=== PATIENT | male | born 1960 | race American Indian/Alaskan Native ===

== ENCOUNTER 2016-08-02 13:40 | Emergency (ER) | payer SELFPAY ==
[2016-08-02 14:38] VITALS: BP 126/85
[2016-08-02 17:01] LABS: Bilirubin,Urine NEG (Negative); Blood,Urine NEG (Negative); Ketones,Urine NEG (Negative); Leukocyte Esterase,Urine NEG (Negative); Nitrite,Urine NEG (Negative); Protein,Urine <15 mg/dL mg/dL (Negative); Urobilinogen,Urine < 2.0 mg/dL (<2.0)
--- NOTE | 2016-08-02 18:39 | Emergency Department Report ---
ED Male HPI - General Chief complaint: Urogenital-Male Stated complaint: DIFF TO URINATE Time Seen by Provider: 08/02/16 18:13 Source: patient Mode of arrival: Ambulatory Limitations: No Limitations - History of Present Illness Initial comments: patient comes in today with complaints of bilateral suprapubic pain. States that he was doing some lifting at work a couple months ago and injured his right wrist and groin. Came in today due to the continued pain. Patient states that he has appointment with orthopedic for his wrist next week. Further notes that he has continued to work 8 hour days, 5 days a week since injury. MD Complaint: groin pain -: Sudden, month(s) (1.5) Location: right inguinal region, left inguinal region Severity: moderate Quality: aching Consistency: intermittent (worse when coughing and voiding) Improves with: rest Worsens with: urination, movement denies: discharge, swelling, mass, rash, urinary retention, blood in urine, dysuria, fever, incontinence - Related Data Previous Rx's Medication Instructions Recorded Last Taken Type Albuterol Sulfate [Ventolin HFA] 2 puff IH Q4H PRN #1 hfa.aer.ad 05/21/15 Unknown Rx Amoxicillin/K Clav Tab [Augmentin 1 tab PO Q12HR #20 tab 05/21/15 Unknown Rx 875MG TAB] predniSONE [Deltasone] 50 mg PO QDAY #5 tab 05/21/15 Unknown Rx Cyclobenzaprine [Flexeril] 10 mg PO BID PRN #20 tablet 08/02/16 Unknown Rx traMADol [Ultram] 50 mg PO Q4HR PRN #30 tablet 08/02/16 Unknown Rx Allergies Allergy/AdvReac Type Severity Reaction Status Date / Time No Known Allergies Allergy Verified 08/02/16 14:29 ED Review of Systems ROS: Stated complaint: DIFF TO URINATE Other details as noted in HPI Constitutional: denies: chills, fever Eyes: denies: eye pain, eye discharge, vision change ENT: denies: ear pain, throat pain Respiratory: denies: cough, shortness of breath, wheezing Cardiovascular: denies: chest pain, palpitations Endocrine: no symptoms reported Gastrointestinal: abdominal pain. denies: nausea, diarrhea Genitourinary: denies: urgency, dysuria, frequency, discharge, testicular pain, testicular mass Musculoskeletal: joint swelling, arthralgia. denies: back pain Skin: denies: rash, lesions Neurological: denies: headache, weakness, paresthesias Psychiatric: denies: anxiety, depression Hematological/Lymphatic: denies: easy bleeding, easy bruising ED Past Medical Hx - Past Medical History Previous Medical History?: No - Surgical History Additional Surgical History: Left elbow surgery at [facility]. SKIN GRAFTS RIGHT ARM - Social History Smoking Status: Current Every Day Smoker Substance Use Type: Alcohol - Medications Home Medications: Home Medications Medication Instructions Recorded Confirmed Last Taken Type Albuterol Sulfate [Ventolin HFA] 2 puff IH Q4H PRN #1 hfa.aer.ad 05/21/15 Unknown Rx Amoxicillin/K Clav Tab [Augmentin 1 tab PO Q12HR #20 tab 05/21/15 Unknown Rx 875MG TAB] predniSONE [Deltasone] 50 mg PO QDAY #5 tab 05/21/15 Unknown Rx Cyclobenzaprine [Flexeril] 10 mg PO BID PRN #20 tablet 08/02/16 Unknown Rx traMADol [Ultram] 50 mg PO Q4HR PRN #30 tablet 08/02/16 Unknown Rx ED Physical Exam - General Limitations: No Limitations General appearance: alert, in no apparent distress - Head Head exam: Present: atraumatic, normocephalic - Eye Eye exam: Present: normal appearance - Neck Neck exam: Present: normal inspection - Respiratory Respiratory exam: Present: normal lung sounds bilaterally. Absent: respiratory distress - Cardiovascular Cardiovascular Exam: Present: regular rate, normal rhythm. Absent: systolic murmur, diastolic murmur, rubs, gallop - GI/Abdominal GI/Abdominal exam: Present: soft, tenderness (tenderness to bilateral inguinal ligaments without herniation.), normal bowel sounds. Absent: distended, guarding, rebound, organomegaly, mass, bruit, pulsatile mass, hernia - Rectal Rectal exam: Present: deferred - exam: Present: normal inspection. Absent: testicular tenderness, urethral discharge, scrotal swelling - Extremities Exam Extremities exam: Present: tenderness (right wrist), joint swelling (right wrist ) - Back Exam Back exam: Present: normal inspection - Neurological Exam Neurological exam: Present: alert, oriented X3, reflexes normal - Psychiatric Psychiatric exam: Present: normal affect, normal mood - Skin Skin exam: Present: warm, dry, intact, normal color. Absent: rash ED Course Vital Signs 08/02/16 14:31 Temperature 98.3 F Pulse Rate 90 Respiratory 17 Rate Blood Pressure 126/85 O2 Sat by Pulse 96 Oximetry ED Medical Decision Making - Medical Decision Making lab results reviewed and discussed with patient. Exam of patient is more consistent with groin strain. I believe that patient's continued work activities continue to aggrivate his injury. I will excuse patient from work until he sees orthopedic next week. Future work restrictions with be per their recommendations. Patient is stable for discharge and in agreement with treatment plan. Critical care attestation.: If time is entered above; I have spent that time in minutes in the direct care of this critically ill patient, excluding procedure time. ED Disposition Clinical Impression: Inguinal strain Disposition: DISCHARGED TO HOME OR SELFCARE Is pt being admited?: No Does the pt Need Aspirin: No Condition: Good Instructions: Groin Strain (ED) Prescriptions: Cyclobenzaprine [Flexeril] 10 mg PO BID PRN #20 tablet PRN Reason: Muscle Spasm traMADol [Ultram] 50 mg PO Q4HR PRN #30 tablet PRN Reason: Pain Referrals: PRIMARY CARE, [Primary Care Provider] - 3-5 Days Forms: Work/School Release Form(ED) Time of Disposition: 18:50
== END 2016-08-02 19:02 | disposition home or self-care (01) ==
LOC: ED 13:40
DX: S39.011A Strain of muscle, fascia and tendon of abdomen, initial encounter (principal); F17.200 Nicotine dependence, unspecified, uncomplicated; X58.XXXA Exposure to other specified factors, initial encounter; Y93.89 Activity, other specified; Y99.9 Unspecified external cause status; Y92.89 Other specified places as the place of occurrence of the external cause
CPT/HCPCS: 81001; 99283

== ENCOUNTER 2018-10-27 11:11 | Emergency (ER) | payer SELFPAY ==
--- NOTE | 2018-10-27 11:40 | Event Note ---
ED Screening Note ED Screening Note: left knee pain off gout meds for 3 w no trauma or fall usual gout pain l knee red and swollen; pt limping denies pmh other than gout This initial assessment/diagnostic orders/clinical plan/treatment(s) is/are subject to change based on patients health status, clinical progression and re- assessment by fellow clinical providers in the ED. Further treatment and workup at subsequent clinical providers discretion. Patient/guardian urged not to elope from the ED as their condition may be serious if not clinically assessed and managed. Initial orders include: rx here and dc home with rx
[2018-10-27] MEDS ORDERED: DECADRON IM ONE (12:11)
[2018-10-27] MEDS ORDERED: NORCO 5/325 PO ONE (12:12)
--- NOTE | 2018-10-27 14:42 | Emergency Department Report ---
ED Lower Extremity HPI - General Chief Complaint: Extremity Problem,Nontraumatic Stated Complaint: LT KNEE PAIN Time Seen by Provider: 10/27/18 11:38 Source: patient Mode of arrival: Ambulatory Limitations: No Limitations - History of Present Illness Initial Comments: This is a 57-year-old male nontoxic, well nourished in appearance, no acute signs of distress presents to the ED with c/o of left knee pain and swelling 2 days. Staetd has been out of his gout medications. Patient stated that has history of gout. Patient denies any trauma. Patient denies any numbness, tingling, fever, chills, nausea, vomiting, chest pain, shortness of breath, headache, stiff neck. Patient denies any joint redness. Patient denies decreased range of motion. Patient stated has decreased gait due to pain. Patient denies any allergies. MD Complaint: knee injury -: days(s) (2) Injury: Knee: Left Place: home Severity: mild Severity scale (0 -10): 8 Improves With: immobilization Worsens With: palpation Associated Symptoms: swelling, ambulatory. denies: snap/pop sensation, numbness, tingling, unable to bear weight, able to partially bear weight - Related Data Previous Rx's Medication Instructions Recorded Last Taken Type Albuterol Sulfate [Ventolin HFA] 2 puff IH Q4H PRN #1 hfa.aer.ad 05/21/15 Unknown Rx Amoxicillin/K Clav Tab [Augmentin 1 tab PO Q12HR #20 tab 05/21/15 Unknown Rx 875MG TAB] predniSONE [Deltasone] 50 mg PO QDAY #5 tab 05/21/15 Unknown Rx Cyclobenzaprine [Flexeril] 10 mg PO BID PRN #20 tablet 08/02/16 Unknown Rx traMADol [Ultram] 50 mg PO Q4HR PRN #30 tablet 08/02/16 Unknown Rx Acetaminophen/Codeine [Tylenol 1 tab PO Q6H PRN #12 tab 10/27/18 Unknown Rx /Codeine # 3 tab] Prednisone [predniSONE 10 mg 10 mg PO .TAPER #1 tab.ds.pk 10/27/18 Unknown Rx (6-Day Pack, 21 Tabs)] Allergies Allergy/AdvReac Type Severity Reaction Status Date / Time No Known Allergies Allergy Verified 10/27/18 11:39 ED Review of Systems ROS: Stated complaint: LT KNEE PAIN Other details as noted in HPI Constitutional: denies: chills, fever Eyes: denies: eye pain, eye discharge, vision change ENT: denies: ear pain, throat pain Respiratory: denies: cough, shortness of breath, wheezing Cardiovascular: denies: chest pain, palpitations Endocrine: no symptoms reported Gastrointestinal: denies: abdominal pain, nausea, diarrhea Genitourinary: denies: urgency, dysuria Musculoskeletal: denies: back pain, joint swelling, arthralgia Skin: denies: rash, lesions Neurological: denies: headache, weakness, paresthesias Psychiatric: denies: anxiety, depression Hematological/Lymphatic: denies: easy bleeding, easy bruising ED Past Medical Hx - Past Medical History Previous Medical History?: Yes Additional medical history: Gout - Surgical History Past Surgical History?: Yes Additional Surgical History: Left elbow surgery at [facility]. SKIN GRAFTS RIGHT ARM - Social History Smoking Status: Current Every Day Smoker Substance Use Type: Alcohol - Medications Home Medications: Home Medications Medication Instructions Recorded Confirmed Last Taken Type Albuterol Sulfate [Ventolin HFA] 2 puff IH Q4H PRN #1 hfa.aer.ad 05/21/15 Unknown Rx Amoxicillin/K Clav Tab [Augmentin 1 tab PO Q12HR #20 tab 05/21/15 Unknown Rx 875MG TAB] predniSONE [Deltasone] 50 mg PO QDAY #5 tab 05/21/15 Unknown Rx Cyclobenzaprine [Flexeril] 10 mg PO BID PRN #20 tablet 08/02/16 Unknown Rx traMADol [Ultram] 50 mg PO Q4HR PRN #30 tablet 08/02/16 Unknown Rx Acetaminophen/Codeine [Tylenol 1 tab PO Q6H PRN #12 tab 10/27/18 Unknown Rx /Codeine # 3 tab] Prednisone [predniSONE 10 mg 10 mg PO .TAPER #1 tab.ds.pk 10/27/18 Unknown Rx (6-Day Pack, 21 Tabs)] ED Physical Exam - General Limitations: No Limitations General appearance: alert, in no apparent distress - Head Head exam: Present: atraumatic, normocephalic - Extremities Exam Extremities exam: Present: normal inspection, full ROM, tenderness, normal capillary refill. Absent: joint swelling - Expanded Lower Extremity Exam Left Hip exam: Present: normal inspection, full ROM. Absent: tenderness Upper Leg exam: Present: normal inspection, full ROM. Absent: tenderness, swelling Knee exam: Present: normal inspection, full ROM, tenderness, swelling, full knee extension. Absent: abrasion, laceration, ecchymosis, deformity, crepidus, dislocation, erythema, effusion, pain w/ pronation/supination, posterior draw sign, pain/laxity with valgus, pain/laxity with varus Lower Leg exam: Present: normal inspection, full ROM. Absent: tenderness, swelling Ankle exam: Present: normal inspection, full ROM. Absent: tenderness Foot/Toe exam: Present: normal inspection, full ROM. Absent: tenderness Neuro vascular tendon exam: Present: no vascular compromise Gait: Positive: observed and normal - Back Exam Back exam: Present: normal inspection, full ROM - Neurological Exam Neurological exam: Present: alert, oriented X3, normal gait - Psychiatric Psychiatric exam: Present: normal affect, normal mood - Skin Skin exam: Present: warm, dry, intact, normal color. Absent: rash ED Course Vital Signs 10/27/18 11:37 Temperature 97.7 F Pulse Rate 90 Respiratory 14 Rate Blood Pressure 158/99 [Right] O2 Sat by Pulse 97 Oximetry - Reevaluation(s) Reevaluation #1: 10/27/18 14:44 Patient is speaking in full sentences with no signs of distress noted. ED Lower Extremity MDM - Medical Decision Making This is a 57-year-old male that presents with left knee gout flareup. Patient is stable and was examined by me. I referred patient to an orthopedic doctor for further evaluation for possible MRI. Patient does have normal gait with no joint swelling. No ecchymosis. no joint redness. Not warm to touch. No signs of cellulites present.Patient was instructed to RICE therapy. Patient received Decadron and Spring for pain. Patient is discharged with prednisone. At time of discharge, the patient does not seem toxic or ill in appearance. No acute signs of distress noted. Patient agrees to discharge treatment plan of care. No further questions noted by the patient. Critical care attestation.: If time is entered above; I have spent that time in minutes in the direct care of this critically ill patient, excluding procedure time. ED Disposition Clinical Impression: Gout of left knee Qualifiers: Gout etiology: unspecified cause Chronicity: acute Qualified Code(s): M10.9 - Gout, unspecified Disposition: DC-01 TO HOME OR SELFCARE Is pt being admited?: No Does the pt Need Aspirin: No Condition: Stable Instructions: Acetaminophen/Codeine (By mouth), Acute Gouty Arthritis (ED) Additional Instructions: Follow-up with a orthopedic doctor in 3-5 days or if symptoms worsen and continue return to emergency room as soon as possible. Do not operate any machinery while taking Tylenol with codeine as this may cause drowsiness. Prescriptions: Prednisone [predniSONE 10 mg (6-Day Pack, 21 Tabs)] 10 mg PO .TAPER #1 tab.ds.pk Acetaminophen/Codeine [Tylenol /Codeine # 3 tab] 1 tab PO Q6H PRN #12 tab PRN Reason: Pain , Severe (7-10) Referrals: PRIMARY CARE, [Referring] - 3-5 Days [facility] [Outside] - 3-5 Days ROLLY TOWNSEND MD [Staff Physician] - 3-5 Days Forms: Work/School Release Form(ED)
[2018-10-27 15:00] VITALS: BP 154/96
== END 2018-10-27 14:58 | disposition home or self-care (01) ==
LOC: ED 11:11
DX: M10.9 Gout, unspecified (principal); F17.200 Nicotine dependence, unspecified, uncomplicated
CPT/HCPCS: 96372; 99282; J1100

== ENCOUNTER 2019-06-12 04:46 | Emergency (ER) | payer SELFPAY ==
--- NOTE | 2019-06-12 06:48 | XRay Report ---
Left elbow, 3 views INDICATION: Pain following trauma today FINDINGS: The joint spaces are intact. No fracture or dislocation. Minimal olecranon spurring is seen . There is a tendon anchor in the region of the lateral humeral condyle. No joint effusion is seen. N o acute abnormality. Signer Name: Jon Knight MD Signed: 06/12/2019 6:43 AM Workstation Name: [id number]
[2019-06-12] MEDS ORDERED: IBUPROFEN 600 MG TAB PO ONE (07:42)
--- NOTE | 2019-06-12 08:01 | Emergency Department Report ---
ED Upper Extremity Inj HPI - General Chief Complaint: Extremity Injury, Upper Stated Complaint: LEFT ELBOW INJURY/WORK RELATED Time Seen by Provider: 06/12/19 07:12 Source: patient Mode of arrival: Ambulatory Limitations: No Limitations - History of Present Illness Initial Comments: This is a 58-year-old male nontoxic, well nourished in appearance, no acute signs of distress presents to the ED with c/o of left elbow pain 2 days. Patient stated that he was heavy lifting at work and developed pain. Stated has hx of ORIF to left elbow. Patient denies any trauma. Patient denies any numbness, tingling, fever, chills, nausea, vomiting, chest pain, shortness of breath, headache, stiff neck. Patient denies any joint swelling or joint redness. Patient denies decreased range of motion. Patient denies any allergies or significant past medical history. MD Complaint: Injury to:: left, elbow -: days(s) (2) Other Extremity Injury: Elbow: Left Severity scale (0 -10): 8 Improves With: immobilization Worsens With: movement of extremity Associated Symptoms: denies other symptoms. denies: weakness, numbness, neck pain, suspects foreign body, nausea/vomiting, heard/felt popping sensat - Related Data Previous Rx's Medication Instructions Recorded Last Taken Type Albuterol Sulfate [Ventolin HFA] 2 puff IH Q4H PRN #1 hfa.aer.ad 05/21/15 Unknown Rx Amoxicillin/K Clav Tab [Augmentin 1 tab PO Q12HR #20 tab 05/21/15 Unknown Rx 875MG TAB] predniSONE [Deltasone] 50 mg PO QDAY #5 tab 05/21/15 Unknown Rx Cyclobenzaprine [Flexeril] 10 mg PO BID PRN #20 tablet 08/02/16 Unknown Rx traMADoL [Ultram] 50 mg PO Q4HR PRN #30 tablet 08/02/16 Unknown Rx Acetaminophen/Codeine [Tylenol 1 tab PO Q6H PRN #12 tab 10/27/18 Unknown Rx /Codeine # 3 tab] Prednisone [predniSONE 10 mg 10 mg PO .TAPER #1 tab.ds.pk 10/27/18 Unknown Rx (6-Day Pack, 21 Tabs)] Naproxen 500 mg PO Q12H PRN #20 tablet 06/12/19 Unknown Rx Allergies Allergy/AdvReac Type Severity Reaction Status Date / Time No Known Allergies Allergy Verified 10/27/18 11:39 ED Review of Systems ROS: Stated complaint: LEFT ELBOW INJURY/WORK RELATED Other details as noted in HPI Constitutional: denies: chills, fever Eyes: denies: eye pain, eye discharge, vision change ENT: denies: ear pain, throat pain Respiratory: denies: cough, shortness of breath, wheezing Cardiovascular: denies: chest pain, palpitations Endocrine: no symptoms reported Gastrointestinal: denies: abdominal pain, nausea, diarrhea Genitourinary: denies: urgency, dysuria Musculoskeletal: denies: back pain, joint swelling, arthralgia Skin: denies: rash, lesions Neurological: denies: headache, weakness, paresthesias Psychiatric: denies: anxiety, depression Hematological/Lymphatic: denies: easy bleeding, easy bruising ED Past Medical Hx - Past Medical History Previous Medical History?: Yes Additional medical history: Gout - Surgical History Past Surgical History?: No Additional Surgical History: Left elbow surgery at [facility]. SKIN GRAFTS RIGHT ARM - Social History Smoking Status: Heavy Tobacco Smoker Substance Use Type: None - Medications Home Medications: Home Medications Medication Instructions Recorded Confirmed Last Taken Type Albuterol Sulfate [Ventolin HFA] 2 puff IH Q4H PRN #1 hfa.aer.ad 05/21/15 Unknown Rx Amoxicillin/K Clav Tab [Augmentin 1 tab PO Q12HR #20 tab 05/21/15 Unknown Rx 875MG TAB] predniSONE [Deltasone] 50 mg PO QDAY #5 tab 05/21/15 Unknown Rx Cyclobenzaprine [Flexeril] 10 mg PO BID PRN #20 tablet 08/02/16 Unknown Rx traMADoL [Ultram] 50 mg PO Q4HR PRN #30 tablet 08/02/16 Unknown Rx Acetaminophen/Codeine [Tylenol 1 tab PO Q6H PRN #12 tab 10/27/18 Unknown Rx /Codeine # 3 tab] Prednisone [predniSONE 10 mg 10 mg PO .TAPER #1 tab.ds.pk 10/27/18 Unknown Rx (6-Day Pack, 21 Tabs)] Naproxen 500 mg PO Q12H PRN #20 tablet 06/12/19 Unknown Rx ED Physical Exam - General Limitations: No Limitations General appearance: alert, in no apparent distress - Head Head exam: Present: atraumatic, normocephalic - Neck Neck exam: Present: normal inspection, full ROM. Absent: tenderness, meningismus, lymphadenopathy - Extremities Exam Extremities exam: Present: normal inspection, full ROM, tenderness, normal capillary refill. Absent: joint swelling - Expanded Upper Extremity Exam Left General: Present: normal inspection Shoulder Exam: Present: normal inspection, full ROM. Absent: tenderness, swelling Upper Arm exam: Present: normal inspection, full ROM. Absent: tenderness, swelling Elbow exam: Present: normal inspection, full ROM, tenderness. Absent: swelling, abrasion, laceration, ecchymosis, deformity, crepidus, dislocation, erythema, effusion, pain w/ pronation/supination, tenderness over radial head Forearm Wrist exam: Present: normal inspection, full ROM. Absent: tenderness, swelling Hand Wrist exam: Present: normal inspection, full ROM. Absent: tenderness, swelling Vascular: Present: vascular compromise, normal capillary refill - Back Exam Back exam: Present: normal inspection, full ROM - Neurological Exam Neurological exam: Present: alert, oriented X3, normal gait - Psychiatric Psychiatric exam: Present: normal affect, normal mood - Skin Skin exam: Present: warm, dry, intact, normal color. Absent: rash ED Course Vital Signs 06/12/19 04:49 Temperature 97.6 F Pulse Rate 78 Respiratory 18 Rate Blood Pressure 159/89 O2 Sat by Pulse 98 Oximetry - Reevaluation(s) Reevaluation #1: 06/12/19 08:00 Patient is speaking in full sentences with no signs of distress noted. ED Medical Decision Making - Medical Decision Making This is a 58-year-old male that presents with right elbow strain. Patient is stable and was examined by me. I referred patient to an orthopedic doctor for further evaluation for possible MRI. X-ray has been obtained and dictated by the radiologist. Patient is notified of the x-ray report with noted by the patient. Patient does have normal gait with no tenderness and no joint swelling. No ecchymosis. no joint redness or swelling. Not warm to touch. No signs of cellulites present. Patient was instructed to RICE therapy. Patient received Motrin for pain. Patient is discharged with Motrin. At time of discharge, the patient does not seem toxic or ill in appearance. No acute signs of distress noted. Patient agrees to discharge treatment plan of care. No further questions noted by the patient. Critical care attestation.: If time is entered above; I have spent that time in minutes in the direct care of this critically ill patient, excluding procedure time. ED Disposition Clinical Impression: Strain of right elbow Qualifiers: Encounter type: initial encounter Qualified Code(s): S46.911A - Strain of unspecified muscle, fascia and tendon at shoulder and upper arm level, right arm, initial encounter Disposition: TO HOME OR SELFCARE Is pt being admited?: No Does the pt Need Aspirin: No Condition: Stable Instructions: RICE Therapy (ED) Additional Instructions: Follow-up with a orthopedic doctor in 3-5 days or if symptoms worsen and johanna nue return to emergency room as soon as possible. Prescriptions: Naproxen 500 mg PO Q12H PRN #20 tablet PRN Reason: Pain , Severe (7-10) Referrals: PRIMARY CAREMD [Primary Care Provider] - 3-5 Days ROLLY TOWNSEND MD [Staff Physician] - 3-5 Days [facility] [Outside] - 3-5 Days Forms: Work/School Release Form(ED)
[2019-06-12 08:18] VITALS: BP 154/84
== END 2019-06-12 08:17 | disposition home or self-care (01) ==
LOC: ED 04:46
DX: S59.902A Unspecified injury of left elbow, initial encounter (principal); S53.401A Unspecified sprain of right elbow, initial encounter; M10.9 Gout, unspecified; F17.200 Nicotine dependence, unspecified, uncomplicated; Z79.899 Other long term (current) drug therapy; Z96.622 Presence of left artificial elbow joint; Z98.890 Other specified postprocedural states; X50.0XXA Overexertion from strenuous movement or load, initial encounter; Y93.89 Activity, other specified; Y92.89 Other specified places as the place of occurrence of the external cause; Y99.0 Civilian activity done for income or pay

== ENCOUNTER 2019-07-06 12:56 | Emergency (ER) | payer SELFPAY ==
--- NOTE | 2019-07-06 14:15 | Emergency Department Report ---
Blank Doc - Documentation Documentation: 58-year-old male that presents with SOB and cough. This initial assessment/diagnostic orders/clinical plan/treatment(s) is/are subject to change based on patient's health status, clinical progression and re- assessment by fellow clinical providers in the ED. Further treatment and workup at subsequent clinical providers discretion. Patient/guardians urged not to elope from the ED as their condition may be serious if not clinically assessed and managed. Initial orders include: 1- Patient sent to [facility] for further evaluation and treatment 2- CXR
[2019-07-06 14:17] VITALS: BP 112/79
--- NOTE | 2019-07-06 14:43 | XRay Report ---
CHEST 2 VIEWS INDICATION / CLINICAL INFORMATION: cough. COMPARISON: 2 views of the chest from 05/20/2015. FINDINGS: SUPPORT DEVICES: None. HEART / MEDIASTINUM: No significant abnormality. LUNGS / PLEURA: No significant pulmonary or pleural abnormality. No pneumothorax. ADDITIONAL FINDINGS: No significant additional findings. IMPRESSION: 1. No acute abnormality of the chest. Signer Name: Uriel Silva MD Signed: 07/06/2019 2:39 PM Workstation Name: [id number]
[2019-07-06] MEDS ORDERED: LEVALBUTEROL 0.63 MG/3 ML NEBU IH ONE (18:10)
[2019-07-06] MEDS ORDERED: dexAMETHasone 4 MG/ML VIAL IM STA (18:14)
--- NOTE | 2019-07-06 18:16 | Emergency Department Report ---
Minor Respiratory - HPI Chief Complaint: Upper Respiratory Infection Stated Complaint: COUGH, SOB Time Seen by Provider: 07/06/19 14:14 Duration: 1 Day Minor Respiratory: Yes Rhinorrhea, Yes Able to Tolerate Fluids, Yes Cough (Mild), Yes Shortness of Breath (With cough), No Sore Throat, No Ear Pain, No Sick Contacts, No Hemoptysis, No Fever Other History: This is a 58-year-old male here report that he has been having occasional cough and shortness of breath with exertion since yesterday. Denies any chest pain. Denies any contact with individuals that had similar problem or any recent travel outside the [place]. Denies any recent travel by airplane. Denies any nausea vomiting, sore throat. Nasal congestion and runny nose positive. Denies any abdominal pain. Denies any diarrhea. Pain is 0/10. No medication taken prior to coming to the ER ED Review of Systems ROS: Stated complaint: COUGH, SOB Other details as noted in HPI Constitutional: denies: chills, fever Eyes: denies: eye discharge ENT: congestion. denies: ear pain, throat pain Respiratory: cough, shortness of breath, SOB with exertion, wheezing. denies: SOB at rest Cardiovascular: denies: chest pain, palpitations, edema, syncope Gastrointestinal: denies: abdominal pain, nausea, vomiting Musculoskeletal: denies: back pain, arthralgia, myalgia Skin: denies: rash Neurological: denies: headache, vertigo ED Past Medical Hx - Past Medical History Previous Medical History?: Yes Additional medical history: Gout - Surgical History Past Surgical History?: Yes Additional Surgical History: Left elbow surgery at [facility]. SKIN GRAFTS RIGHT ARM - Family History Family history: hypertension - Social History Smoking Status: Current Every Day Smoker Substance Use Type: None - Medications Home Medications: Home Medications Medication Instructions Recorded Confirmed Last Taken Type Albuterol Sulfate [Ventolin HFA] 2 puff IH Q4H PRN #1 hfa.aer.ad 05/21/15 Unknown Rx Amoxicillin/K Clav Tab [Augmentin 1 tab PO Q12HR #20 tab 05/21/15 Unknown Rx 875MG TAB] predniSONE [Deltasone] 50 mg PO QDAY #5 tab 05/21/15 Unknown Rx Cyclobenzaprine [Flexeril] 10 mg PO BID PRN #20 tablet 08/02/16 Unknown Rx traMADoL [Ultram] 50 mg PO Q4HR PRN #30 tablet 08/02/16 Unknown Rx Acetaminophen/Codeine [Tylenol 1 tab PO Q6H PRN #12 tab 10/27/18 Unknown Rx /Codeine # 3 tab] Prednisone [predniSONE 10 mg 10 mg PO .TAPER #1 tab.ds.pk 10/27/18 Unknown Rx (6-Day Pack, 21 Tabs)] Naproxen 500 mg PO Q12H PRN #20 tablet 06/12/19 Unknown Rx Albuterol INH(or & Nicu Only) 2 puff IH Q6H PRN #1 inhalation 07/06/19 Unknown Rx [ProAir HFA Inhaler] methylPREDNISolone [Medrol 4MG 4 mg PO QAM 6 Days #1 tab.ds.pk 07/06/19 Unknown Rx DOSEPAK (21 tabs)] Minor Respiratory Exam - Exam General: Vital signs noted. No distress. Alert and acting appropriately. This is a 58-year-old male well-nourished well-developed in no acute distress HEENT: Yes Moist Mucous Membranes, Yes Rhinorrhea (Pale and boggy clear drainage), No Pharyngeal Erythema, No Pharyngeal Exudates, No Conjuctival Injection, No Frontal Tenderness, No Maxillary Tenderness Ear: Neither TM Bulge, Neither TM Erythema, Neither EAC Pain, Neither EAC Discharge Neck: Yes Supple, No Adenopathy Lungs: Yes Good Air Exchange, Yes Wheezes (Scattered wheezing to upper lung obrien), No Ronchi, No Stridor, No Cough, No Labored Respirations, No Retractions, No Use of Accessory Muscles, No Other Abnormal Lung Sounds Heart: Yes Regular, No Murmur Abdomen: Yes Normal Bowel Sounds (In all quadrants), No Tenderness, No Peritoneal Signs Skin: No Rash, No Edema Neurologic: Alert and oriented, no deficits. Musculoskeletal: Unremarkable. ED Course Vital Signs 07/06/19 14:15 Temperature 97.9 F Pulse Rate 92 H Respiratory 16 Rate Blood Pressure 112/79 O2 Sat by Pulse 96 Oximetry Vital Signs 07/06/19 07/06/19 07/06/19 14:15 18:43 18:54 Temperature 97.9 F Pulse Rate 92 H 62 Pulse Rate [ 93 H Anterior Bilateral Throughout] Respiratory 16 Rate Respiratory 17 Rate [Anterior Bilateral Throughout] Blood Pressure 112/79 O2 Sat by Pulse 96 99 Oximetry - Reevaluation(s) Reevaluation #1: 07/06/19 18:52 Patient received nebulizer treatments Xopenex 1.25 mg and Decadron 10 mg IM. He is feeling much better after treatment. Pulse ox went from 96% on room air to 9 9% on room air. He said he is feeling much better. Lung sounds are clear ED Medical Decision Making - Radiology Data Radiology results: report reviewed X-ray 2 views dictated by radiologist and report reviewed myself. No acute processes. Print Report Referring Physician:PEGGY MASONPatient Name:GRACIE NGPatient ID: [id number] of :[id number]:MaleAccession:[id number] Date:[id number] Status:Finalized Findings [facility] [address] [place] [address] XRay Report Signed Patient: GRACIE NG MR#: [id number] : 1960 Acct:[id number] Age/Sex: 58 / M ADM Date: 07/06/19 Loc: ED Attending Dr: Ordering Physician: PEGGY MASON NP Date of Service: 07/06/19 Procedure(s): XR chest routine 2V Accession Number(s): [id number] cc: PEGGY MASON NP Fluoro Time In Minutes: CHEST 2 VIEWS INDICATION / CLINICAL INFORMATION: cough. COMPARISON: 2 views of the chest from 05/20/2015. FINDINGS: SUPPORT DEVICES: None. HEART / MEDIASTINUM: No significant abnormality. LUNGS / PLEURA: No significant pulmonary or pleural abnormality. No pneumothorax. ADDITIONAL FINDINGS: No significant additional findings. IMPRESSION: 1. No acute abnormality of the chest. Signer Name: Uriel Silva MD Signed: 07/06/2019 2:39 PM Workstation Name: [id number] Transcribed By: [place] Dictated By: Uriel Silva MD Electronically Authenticated By: Uriel Silva MD Signed Date/Time: 07/06/191438 DD/ 38 TD/TT: - Medical Decision Making This is a 58-year-old male here report that he has some cough and shortness of breath on exertion started yesterday. He said he was sent to the emergency room by his boss to make sure he was okay. Patient is a smoker and smokes daily. Past medical history of gout otherwise stable. Physical exam stable except he has scattered wheezing to his upper lung obrien and signs of allergic rhinitis. Patient with mild acute bronchitis and URI with cough and congestion. Treated in emergency room with nebulizer treatment and lung sounds are clear after treatment. He was given Decadron 10 mg IM in emergency room. Patient stable in no acute distress. Vital signs stable afebrile and he is in no pain. Patient discharged home with prescription for Medrol Dosepak, Zyrtec and albuterol inhaler. - Differential Diagnosis PNA, bronchitis, sinusitis, URI with cough and congestion Critical care attestation.: If time is entered above; I have spent that time in minutes in the direct care of this critically ill patient, excluding procedure time. ED Disposition Clinical Impression: URI with cough and congestion Acute bronchitis Qualifiers: Bronchitis organism: unspecified organism Qualified Code(s): J20.9 - Acute bronchitis, unspecified Disposition: DC-01 TO HOME OR SELFCARE Is pt being admited?: No Does the pt Need Aspirin: No Condition: Stable Instructions: Upper Respiratory Infection (ED), Acute Bronchitis (ED) Additional Instructions: Please see discharge instruction COVID-19 for your information Follow-up with your primary care physician in 2 days Take medication as prescribed If your condition worsens, return to the emergency room Prescriptions: methylPREDNISolone [Medrol 4MG DOSEPAK (21 tabs)] 4 mg PO QAM 6 Days #1 tab.ds.pk Albuterol INH(or & Nicu Only) [ProAir HFA Inhaler] 2 puff IH Q6H PRN #1 inhalation PRN Reason: Shortness Of Breath/cough Referrals: PRIMARY CARE, [Primary Care Provider] - 07/08/19 Follow-up, [facility] primary care [Other] - 07/08/19 Forms: Work/School Release Form(ED)
== END 2019-07-06 19:00 | disposition home or self-care (01) ==
LOC: ED 12:56
DX: J20.9 Acute bronchitis, unspecified (principal); F17.200 Nicotine dependence, unspecified, uncomplicated; M10.9 Gout, unspecified
CPT/HCPCS: 71046; 94640; 96372; 99283; J1100; 94644

== ENCOUNTER 2019-10-09 06:15 | Emergency (ER) | payer SELFPAY ==
[2019-10-09 06:37] VITALS: BP 150/79
[2019-10-09] MEDS ORDERED: COLCHICINE 0.6 MG CAP PO ONE (07:35)
[2019-10-09] MEDS ORDERED: dexAMETHasone 20 MG/5 ML VIAL IM ONE (07:35)
--- NOTE | 2019-10-09 08:32 | Emergency Department Report ---
Upper Extremity - HPI Chief Complaint: Extremity Injury, Upper Stated Complaint: GOUT/RT ELBOW Time Seen by Provider: 10/09/19 07:34 Upper Extremity: Right Elbow (pain) Occurred When: 4 Days Mechanism: Other Severity: moderate Symptoms: Yes Pain with Movement, Yes Limited Range of Movement (Due to pain), No Deformity, No Numbness, No Weakness, No Swelling, No Bruising/Ecchymosis, No Laceration or Abrasion Other History: This is a 58-year-old male with a history of gout who presents the ED complaining of right elbow pain from a gouty flareup. Patient states he was celebrating his niece's graduation a couple days ago he got carried away with different foods. Patient states that he does not currently take any med ication for gout which is why he got a flare. He denies any injury or trauma or falls ED Review of Systems ROS: Stated complaint: GOUT/RT ELBOW Other details as noted in HPI Comment: All other systems reviewed and negative ED Past Medical Hx - Past Medical History Previous Medical History?: Yes Additional medical history: Gout - Surgical History Past Surgical History?: Yes Additional Surgical History: Left elbow surgery at [facility]. SKIN GRAFTS RIGHT ARM - Social History Smoking Status: Current Every Day Smoker Substance Use Type: Alcohol - Medications Home Medications: Home Medications Medication Instructions Recorded Confirmed Last Taken Type Albuterol Sulfate [Ventolin HFA] 2 puff IH Q4H PRN #1 hfa.aer.ad 05/21/15 Unknown Rx Amoxicillin/K Clav Tab [Augmentin 1 tab PO Q12HR #20 tab 05/21/15 Unknown Rx 875MG TAB] Cyclobenzaprine [Flexeril] 10 mg PO BID PRN #20 tablet 08/02/16 Unknown Rx traMADoL [Ultram] 50 mg PO Q4HR PRN #30 tablet 08/02/16 Unknown Rx Acetaminophen/Codeine [Tylenol 1 tab PO Q6H PRN #12 tab 10/27/18 Unknown Rx /Codeine # 3 tab] Prednisone [predniSONE 10 mg 10 mg PO .TAPER #1 tab.ds.pk 10/27/18 Unknown Rx (6-Day Pack, 21 Tabs)] Albuterol INH(or & Nicu Only) 2 puff IH Q6H PRN #1 inhalation 07/06/19 Unknown Rx [ProAir HFA Inhaler] methylPREDNISolone [Medrol 4MG 4 mg PO QAM 6 Days #1 tab.ds.pk 07/06/19 Unknown Rx DOSEPAK (21 tabs)] Colchicine 0.6 mg PO BID #20 capsule 10/09/19 Unknown Rx Naproxen 500 mg PO Q12H PRN #20 tablet 10/09/19 Unknown Rx predniSONE [Deltasone] 50 mg PO QDAY #5 tab 10/09/19 Unknown Rx Upper Extremity Exam - Exam General: Vital signs noted. No distress. Alert and acting appropriately. Head and Torso: No HEENT Abnormality, No Neck Tenderness, No Chest/Lungs Abnormality, No Abdominal Tenderness, No Back Tenderness Shoulder Exam: Yes Normal Range of Motion in Shoulder, No Shoulder Tenderness, No Clavicle Tenderness, No Shoulder Deformity, No AC Joint Tenderness Arm Exam: No Arm/Humerus Tenderness, No Arm Deformity Elbow: Yes Elbow Tenderness (To palpation of the right elbow. Pain with extension), No Normal Range of Motion in Elbow, No Elbow Deformity Forearm: No Forearm Tenderness, No Forearm Deformity, No Pain with Pronation, No Pain with Supination Wrist: Yes Normal ROM in Wrist, No Wrist Tenderness, No Wrist Deformity, No Snuffbox Tenderness, No Pain with Axial Thumb Compression Hand: Yes Normal ROM in Digit(s), No Hand Tenderness, No Hand Deformity, No Digit Tenderness, No Digit(s) Deformity, No Tendon Dysfunction CMS Exam: No Broken Skin, No Normal Distal Pulses, No Normal Capillary Refill, No Normal Distal Sensation ED Course Vital Signs 10/09/19 06:25 Temperature 98.1 F Pulse Rate 88 Respiratory 18 Rate Blood Pressure 150/79 O2 Sat by Pulse 95 Oximetry ED Medical Decision Making - Medical Decision Making 58-year-old male presents with right elbow pain secondary to gouty arthritis. Patient received colchicine Decadron in the ED. Discussed patient to follow-up with his primary care physician. Patient will be discharged home on meds for gouty arthritis. Vital signs are normal patient is in no acute distress. Critical care attestation.: If time is entered above; I have spent that time in minutes in the direct care of this critically ill patient, excluding procedure time. ED Disposition Clinical Impression: Gouty arthritis Disposition: TO HOME OR SELFCARE Is pt being admited?: No Does the pt Need Aspirin: No Condition: Stable Instructions: Acute Gouty Arthritis (ED) Additional Instructions: Make sure to follow up with the primary care physician as discussed. Take all your medications as you've been prescribed. If you have any worsening symptoms or develop new symptoms please return to ED immediately. Prescriptions: Colchicine 0.6 mg PO BID #20 capsule predniSONE [Deltasone] 50 mg PO QDAY #5 tab Naproxen 500 mg PO Q12H PRN #20 tablet PRN Reason: Pain , Severe (7-10) Referrals: PRIMARY CARE, [Primary Care Provider] - 3-5 Days [facility] [Outside] - 3-5 Days [facility] [Outside] - 3-5 Days Forms: Work/School Release Form(ED) Time of Disposition: 08:37
== END 2019-10-09 08:41 | disposition home or self-care (01) ==
LOC: ED 06:15
DX: M10.9 Gout, unspecified (principal); F17.200 Nicotine dependence, unspecified, uncomplicated; Z79.899 Other long term (current) drug therapy; Z98.890 Other specified postprocedural states
CPT/HCPCS: 96372; 99282; J1100

== ENCOUNTER 2020-02-18 06:20 | Emergency (ER) | payer SELFPAY ==
[2020-02-18 07:00] VITALS: BP 149/102
--- NOTE | 2020-02-18 07:18 | XRay Report ---
RIGHT WRIST 3 VIEWS INDICATION / CLINICAL INFORMATION: right wrist pain. COMPARISON: None available. FINDINGS: Very minimal degenerative changes present within the wrist. No fracture or dislocation. IMPRESSION: Minimal degenerative change. Signer Name: Brandie Tobar MD Signed: 02/18/2020 7:13 AM Workstation Name: [id number]
--- NOTE | 2020-02-18 10:07 | Emergency Department Report ---
Upper Extremity - HPI Chief Complaint: Extremity Injury, Upper Stated Complaint: RIGHT WRIST PAIN Time Seen by Provider: 02/18/20 10:02 Upper Extremity: Right Wrist Occurred When: 1 Day Severity: severe Symptoms: Yes Pain with Movement, No Deformity, No Limited Range of Movement, No Numbness, No Swelling Other History: The patient was evaluated in the emergency department for symptoms described in the history of present illness. He/she was evaluated in the context of the global COVID-19 pandemic, which necessitated consideration that the patient might be at risk for infection with the virus that causes COVID-19. Institutional protocols and algorithms that pertain to the evaluation of patients at risk for COVID-19 are in a state of rapid change based on information released by regulatory bodies including the CDC and federal and state organizations. These policies and algorithms were followed during the patient's care in the emergency department. Please note that these policies, procedures and recommendations changed on a rapid basis. 59-year-old - Serbian male presents to the emergency room for right wrist pain with no injury. Patient states that started last night. Patient states he took some medication not sure the name of it. Patient states that it did not help. Patient does have a history of gout. He admits to eating shrimp. ED Review of Systems ROS: Stated complaint: RIGHT WRIST PAIN Other details as noted in HPI Comment: All other systems reviewed and negative ED Past Medical Hx - Past Medical History Previous Medical History?: Yes Additional medical history: Gout - Surgical History Additional Surgical History: Left elbow surgery at [facility]. SKIN GRAFTS RIGHT ARM - Social History Smoking Status: Current Every Day Smoker Substance Use Type: None - Medications Home Medications: Home Medications Medication Instructions Recorded Confirmed Last Taken Type Albuterol Sulfate [Ventolin HFA] 2 puff IH Q4H PRN #1 hfa.aer.ad 05/21/15 Unknown Rx Amoxicillin/K Clav Tab [Augmentin 1 tab PO Q12HR #20 tab 05/21/15 Unknown Rx 875MG TAB] Cyclobenzaprine [Flexeril] 10 mg PO BID PRN #20 tablet 08/02/16 Unknown Rx traMADoL [Ultram] 50 mg PO Q4HR PRN #30 tablet 08/02/16 Unknown Rx Acetaminophen/Codeine [Tylenol 1 tab PO Q6H PRN #12 tab 10/27/18 Unknown Rx /Codeine # 3 tab] Prednisone [predniSONE 10 mg 10 mg PO .TAPER #1 tab.ds.pk 10/27/18 Unknown Rx (6-Day Pack, 21 Tabs)] Albuterol Mdi (or & Nicu Only) 2 puff IH Q6H PRN #1 inhalation 07/06/19 Unknown Rx [ProAir HFA Inhaler] methylPREDNISolone [Medrol 4MG 4 mg PO QAM 6 Days #1 tab.ds.pk 07/06/19 Unknown Rx DOSEPAK (21 tabs)] Colchicine 0.6 mg PO BID #20 capsule 10/09/19 Unknown Rx Naproxen 500 mg PO Q12H PRN #20 tablet 10/09/19 Unknown Rx predniSONE [Deltasone] 50 mg PO QDAY #5 tab 10/09/19 Unknown Rx Colchicine 0.6 mg PO BID #20 capsule 02/18/20 Unknown Rx Indomethacin 50 mg PO Q8H #15 capsule 02/18/20 Unknown Rx predniSONE [Deltasone] 50 mg PO QDAY #5 tab 02/18/20 Unknown Rx Upper Extremity Exam - Exam General: Vital signs noted. No distress. Alert and acting appropriately. ED Course Vital Signs 02/18/20 06:59 Temperature 98 F Pulse Rate 95 H Respiratory 18 Rate Blood Pressure 149/102 [Left] O2 Sat by Pulse 98 Oximetry ED Medical Decision Making - Radiology Data Radiology results: report reviewed [address] [address] XRay Report Signed Patient: GRACIE NG MR#: [id number] : 1960 Acct:[id number] Age/Sex: 59 / M ADM Date: 02/18/20 Loc: ED Attending Dr: Ordering Physician: TANYA CHEN MD Date of Service: 02/18/20 Procedure(s): XR wrist 3+V RT Accession Number(s): [id number] cc: ED MD APRIL Fluoro Time In Minutes: RIGHT WRIST 3 VIEWS INDICATION / CLINICAL INFORMATION: right wrist pain. COMPARISON: None available. FINDINGS: Very minimal degenerative changes present within the wrist. No fracture or dislocation. IMPRESSION: Minimal degenerative change. Signer Name: Brandie Tobar MD Signed: 02/18/2020 7:13 AM Workstation Name: [id number] Transcribed By: Dictated By: Brandie Tobar MD Electronically Authenticated By: Brandie Tobar MD Signed Date/Time: 02/18/20712 DD/ 1 TD/TT: - Medical Decision Making 59-year-old -Serbian male presents to the emergency room for right wrist pain with no injury. Patient states that started last night. Patient states he took some medication not sure the name of it. Patient states that it did not help. Patient does have a history of gout. He admits to eating shrimp. Patient be given a dexamethasone 10 mg IM shot, colchicine 1.2 mg pill and Toradol injection of 30 mg. Patient be discharged home on a prednisone trial colchicine and ibuprofen. Critical care attestation.: If time is entered above; I have spent that time in minutes in the direct care o f this critically ill patient, excluding procedure time. ED Disposition Clinical Impression: Gouty arthritis Disposition: DC-01 TO HOME OR SELFCARE Is pt being admited?: No Does the pt Need Aspirin: No Condition: Stable Instructions: Wrist Pain, Adult, Low-Purine Eating Plan Additional Instructions: Take medications as prescribed. Avoid drinking alcohol eating seafood and red meats. Increase your water intake by 4 L daily. Prescriptions: Colchicine 0.6 mg PO BID #20 capsule predniSONE [Deltasone] 50 mg PO QDAY #5 tab Indomethacin 50 mg PO Q8H #15 capsule Referrals: PRIMARY CAREMD [Primary Care Provider] - 3-5 Days [facility] [Provider Group] - 3-5 Days
[2020-02-18] MEDS ORDERED: dexAMETHasone 20 MG/5 ML VIAL IV ONE (10:09)
[2020-02-18] MEDS ORDERED: KETOROLAC 30 MG/1 ML INJ IM ONE (10:09)
[2020-02-18] MEDS ORDERED: COLCHICINE 0.6 MG CAP PO ONE (10:09)
== END 2020-02-18 11:11 | disposition home or self-care (01) ==
LOC: ED 06:20
DX: M10.9 Gout, unspecified (principal); F17.200 Nicotine dependence, unspecified, uncomplicated; Z79.899 Other long term (current) drug therapy; Z98.890 Other specified postprocedural states
CPT/HCPCS: 73110; 96372; 96374; 99284; J1100; J1885

== ENCOUNTER 2020-06-03 04:36 | Emergency (ER) | payer SELFPAY ==
[2020-06-03 05:14] VITALS: BP 144/95
--- NOTE | 2020-06-03 05:16 | Emergency Department Report ---
ED Upper Extremity Inj HPI - General Stated Complaint: GOUT PAIN/ELBOW Time Seen by Provider: 06/03/20 05:07 - History of Present Illness Initial Comments: 39-year-old Indonesian male with a known history of gout arthritis presents emerged department complaining of a possible flareup after consuming excess amount of seafood and drinking alcohol wearing off of his gout diet as previously instructed by emergency department states she been having this prob edel off and on for cysts for several years it is yet to follow-up with the appropriate doctor for gout management. Reports no fever, chills, sweats, chest pain, palpitation, nausea, vomiting, traumatic event to cause pain MD Complaint: Injury to:: right, elbow -: Gradual Other Extremity Injury: Elbow: Right Other Injuries: none Handedness: right Associated Symptoms: denies other symptoms - Related Data Previous Rx's Medication Instructions Recorded Last Taken Type Albuterol Sulfate [Ventolin HFA] 2 puff IH Q4H PRN #1 hfa.aer.ad 05/21/15 Unknown Rx Amoxicillin/K Clav Tab [Augmentin 1 tab PO Q12HR #20 tab 05/21/15 Unknown Rx 875MG TAB] Cyclobenzaprine [Flexeril] 10 mg PO BID PRN #20 tablet 08/02/16 Unknown Rx traMADoL [Ultram] 50 mg PO Q4HR PRN #30 tablet 08/02/16 Unknown Rx Acetaminophen/Codeine [Tylenol 1 tab PO Q6H PRN #12 tab 10/27/18 Unknown Rx /Codeine # 3 tab] Prednisone [predniSONE 10 mg 10 mg PO .TAPER #1 tab.ds.pk 10/27/18 Unknown Rx (6-Day Pack, 21 Tabs)] Albuterol Mdi (or & Nicu Only) 2 puff IH Q6H PRN #1 inhalation 07/06/19 Unknown Rx [ProAir HFA Inhaler] methylPREDNISolone [Medrol 4MG 4 mg PO QAM 6 Days #1 tab.ds.pk 07/06/19 Unknown Rx DOSEPAK (21 tabs)] Colchicine 0.6 mg PO BID #20 capsule 10/09/19 Unknown Rx Naproxen 500 mg PO Q12H PRN #20 tablet 10/09/19 Unknown Rx predniSONE [Deltasone] 50 mg PO QDAY #5 tab 10/09/19 Unknown Rx Colchicine 0.6 mg PO BID #20 capsule 02/18/20 Unknown Rx Indomethacin 50 mg PO Q8H #15 capsule 02/18/20 Unknown Rx predniSONE [Deltasone] 50 mg PO QDAY #5 tab 02/18/20 Unknown Rx Colchicine 0.6 mg PO Q2HR #20 tablet 06/03/20 Unknown Rx Indomethacin [Indocin] 25 mg PO Q8H #14 capsule 06/03/20 Unknown Rx predniSONE [Deltasone] 50 mg PO QDAY #5 tab 06/03/20 Unknown Rx Allergies Allergy/AdvReac Type Severity Reaction Status Date / Time No Known Allergies Allergy Verified 10/27/18 11:39 ED Review of Systems ROS: Stated complaint: GOUT PAIN/ELBOW Other details as noted in HPI Comment: All other systems reviewed and negative ED Past Medical Hx - Past Medical History Additional medical history: Gout - Surgical History Additional Surgical History: Left elbow surgery at [facility]. SKIN GRAFTS RIGHT ARM - Social History Smoking Status: Current Every Day Smoker Substance Use Type: None - Medications Home Medications: Home Medications Medication Instructions Recorded Confirmed Last Taken Type Albuterol Sulfate [Ventolin HFA] 2 puff IH Q4H PRN #1 hfa.aer.ad 05/21/15 Unknown Rx Amoxicillin/K Clav Tab [Augmentin 1 tab PO Q12HR #20 tab 05/21/15 Unknown Rx 875MG TAB] Cyclobenzaprine [Flexeril] 10 mg PO BID PRN #20 tablet 08/02/16 Unknown Rx traMADoL [Ultram] 50 mg PO Q4HR PRN #30 tablet 08/02/16 Unknown Rx Acetaminophen/Codeine [Tylenol 1 tab PO Q6H PRN #12 tab 10/27/18 Unknown Rx /Codeine # 3 tab] Prednisone [predniSONE 10 mg 10 mg PO .TAPER #1 tab.ds.pk 10/27/18 Unknown Rx (6-Day Pack, 21 Tabs)] Albuterol Mdi (or & Nicu Only) 2 puff IH Q6H PRN #1 inhalation 07/06/19 Unknown Rx [ProAir HFA Inhaler] methylPREDNISolone [Medrol 4MG 4 mg PO QAM 6 Days #1 tab.ds.pk 07/06/19 Unknown Rx DOSEPAK (21 tabs)] Colchicine 0.6 mg PO BID #20 capsule 10/09/19 Unknown Rx Naproxen 500 mg PO Q12H PRN #20 tablet 10/09/19 Unknown Rx predniSONE [Deltasone] 50 mg PO QDAY #5 tab 10/09/19 Unknown Rx Colchicine 0.6 mg PO BID #20 capsule 02/18/20 Unknown Rx Indomethacin 50 mg PO Q8H #15 capsule 02/18/20 Unknown Rx predniSONE [Deltasone] 50 mg PO QDAY #5 tab 02/18/20 Unknown Rx Colchicine 0.6 mg PO Q2HR #20 tablet 06/03/20 Unknown Rx Indomethacin [Indocin] 25 mg PO Q8H #14 capsule 06/03/20 Unknown Rx predniSONE [Deltasone] 50 mg PO QDAY #5 tab 06/03/20 Unknown Rx ED Physical Exam - General General appearance: alert, in no apparent distress - Head Head exam: Present: atraumatic, normocephalic - Eye Eye exam: Present: normal appearance - ENT ENT exam: Present: mucous membranes moist - Neck Neck exam: Present: normal inspection - Respiratory Respiratory exam: Present: normal lung sounds bilaterally. Absent: respiratory distress - Cardiovascular Cardiovascular Exam: Present: regular rate, normal rhythm. Absent: systolic murmur, diastolic murmur, rubs, gallop - GI/Abdominal GI/Abdominal exam: Present: soft, normal bowel sounds - Rectal Rectal exam: Present: deferred - Extremities Exam Extremities exam: Present: normal inspection, tenderness, joint swelling, other (Right elbow) - Back Exam Back exam: Present: normal inspection. Absent: CVA tenderness (R), CVA tenderness (L) - Neurological Exam Neurological exam: Present: alert, oriented X3, CN II-XII intact, normal gait - Psychiatric Psychiatric exam: Present: normal affect, normal mood - Skin Skin exam: Present: warm, dry, intact, normal color. Absent: rash Critical care attestation.: If time is entered above; I have spent that time in minutes in the direct care of this critically ill patient, excluding procedure time. ED Disposition Clinical Impression: Gouty arthritis Disposition: TO HOME OR SELFCARE Is pt being admited?: No Does the pt Need Aspirin: No Condition: Stable Instructions: Calcium Pyrophosphate Deposition, Low-Purine Eating Plan, Uric Acid Nephropathy
== END 2020-06-03 05:27 | disposition home or self-care (01) ==
LOC: ED 04:36
DX: M10.9 Gout, unspecified (principal); F17.200 Nicotine dependence, unspecified, uncomplicated; Z79.899 Other long term (current) drug therapy; Z98.890 Other specified postprocedural states
CPT/HCPCS: 99282

== ENCOUNTER 2020-06-09 09:27 | Emergency (ER) | payer SELFPAY ==
[2020-06-09 09:52] VITALS: BP 148/99
--- NOTE | 2020-06-09 10:13 | Emergency Department Report ---
ED Extremity Problem HPI - General Chief complaint: Extremity Injury, Upper Stated complaint: RT ARM GOUT/SEEN HERE LAST WEEK FOR SAME Time Seen by Provider: 06/09/20 09:59 Source: patient Mode of arrival: Ambulatory Limitations: No Limitations - History of Present Illness Initial comments: 59-year-old male with a past medical history of gout presents to the ER today complaint of right elbow pain. Patient states that has been having symptoms since last Thursday. He was seen here Thursday when he symptoms flared up. He was started on prednisone 50 mg and indomethacin 25 mg to take 3 times a day. Patient states that he ran out of prednisone 50 yesterday but he still has a few doses of the indomethacin left. Patient states that the pain is more so when he moves his elbow. He states that he still continues to have swelling in the elbow. He does admit that he works at a job which requires lots of lifting and so he does do a lot of repetitive arm use. He denies any falls or other trauma. He does not have a primary care doctor currently. He states that he was not able to follow-up as he was instructed to do so last week because he was try to "take care of his home". Patient reports no other symptoms at this time. MD Complaint: joint swelling, joint paint, other -: Gradual (Since last thursday ) Severity scale (0 -10): 8 - Related Data Previous Rx's Medication Instructions Recorded Last Taken Type Albuterol Sulfate [Ventolin HFA] 2 puff IH Q4H PRN #1 hfa.aer.ad 05/21/15 Unknown Rx Amoxicillin/K Clav Tab [Augmentin 1 tab PO Q12HR #20 tab 05/21/15 Unknown Rx 875MG TAB] Cyclobenzaprine [Flexeril] 10 mg PO BID PRN #20 tablet 08/02/16 Unknown Rx traMADoL [Ultram] 50 mg PO Q4HR PRN #30 tablet 08/02/16 Unknown Rx Prednisone [predniSONE 10 mg 10 mg PO .TAPER #1 tab.ds.pk 10/27/18 Unknown Rx (6-Day Pack, 21 Tabs)] Albuterol Mdi (or & Nicu Only) 2 puff IH Q6H PRN #1 inhalation 07/06/19 Unknown Rx [ProAir HFA Inhaler] methylPREDNISolone [Medrol 4MG 4 mg PO QAM 6 Days #1 tab.ds.pk 07/06/19 Unknown Rx DOSEPAK (21 tabs)] Colchicine 0.6 mg PO BID #20 capsule 10/09/19 Unknown Rx Naproxen 500 mg PO Q12H PRN #20 tablet 10/09/19 Unknown Rx predniSONE [Deltasone] 50 mg PO QDAY #5 tab 10/09/19 Unknown Rx Colchicine 0.6 mg PO BID #20 capsule 02/18/20 Unknown Rx predniSONE [Deltasone] 50 mg PO QDAY #5 tab 02/18/20 Unknown Rx Colchicine 0.6 mg PO Q2HR #20 tablet 06/03/20 Unknown Rx Indomethacin [Indocin] 25 mg PO Q8H #14 capsule 06/03/20 Unknown Rx predniSONE [Deltasone] 50 mg PO QDAY #5 tab 06/03/20 Unknown Rx Acetaminophen/Codeine [Tylenol 1 tab PO Q6H PRN #12 tab 06/09/20 Unknown Rx /Codeine # 3 tab] Indomethacin 50 mg PO Q8H #15 capsule 06/09/20 Unknown Rx Allergies Allergy/AdvReac Type Severity Reaction Status Date / Time No Known Allergies Allergy Verified 10/27/18 11:39 ED Review of Systems ROS: Stated complaint: RT ARM GOUT/SEEN HERE LAST WEEK FOR SAME Other details as noted in HPI Comment: All other systems reviewed and negative Musculoskeletal: joint swelling, arthralgia ED Past Medical Hx - Past Medical History Previous Medical History?: Yes Additional medical history: Gout - Surgical History Past Surgical History?: Yes Additional Surgical History: Left elbow surgery at [facility]. SKIN GRAFTS RIGHT ARM - Social History Smoking Status: Current Every Day Smoker Substance Use Type: None - Medications Home Medications: Home Medications Medication Instructions Recorded Confirmed Last Taken Type Albuterol Sulfate [Ventolin HFA] 2 puff IH Q4H PRN #1 hfa.aer.ad 05/21/15 Unknown Rx Amoxicillin/K Clav Tab [Augmentin 1 tab PO Q12HR #20 tab 05/21/15 Unknown Rx 875MG TAB] Cyclobenzaprine [Flexeril] 10 mg PO BID PRN #20 tablet 08/02/16 Unknown Rx traMADoL [Ultram] 50 mg PO Q4HR PRN #30 tablet 08/02/16 Unknown Rx Prednisone [predniSONE 10 mg 10 mg PO .TAPER #1 tab.ds.pk 10/27/18 Unknown Rx (6-Day Pack, 21 Tabs)] Albuterol Mdi (or & Nicu Only) 2 puff IH Q6H PRN #1 inhalation 07/06/19 Unknown Rx [ProAir HFA Inhaler] methylPREDNISolone [Medrol 4MG 4 mg PO QAM 6 Days #1 tab.ds.pk 07/06/19 Unknown Rx DOSEPAK (21 tabs)] Colchicine 0.6 mg PO BID #20 capsule 10/09/19 Unknown Rx Naproxen 500 mg PO Q12H PRN #20 tablet 10/09/19 Unknown Rx predniSONE [Deltasone] 50 mg PO QDAY #5 tab 10/09/19 Unknown Rx Colchicine 0.6 mg PO BID #20 capsule 02/18/20 Unknown Rx predniSONE [Deltasone] 50 mg PO QDAY #5 tab 02/18/20 Unknown Rx Colchicine 0.6 mg PO Q2HR #20 tablet 06/03/20 Unknown Rx Indomethacin [Indocin] 25 mg PO Q8H #14 capsule 06/03/20 Unknown Rx predniSONE [Deltasone] 50 mg PO QDAY #5 tab 06/03/20 Unknown Rx Acetaminophen/Codeine [Tylenol 1 tab PO Q6H PRN #12 tab 06/09/20 Unknown Rx /Codeine # 3 tab] Indomethacin 50 mg PO Q8H #15 capsule 06/09/20 Unknown Rx ED Physical Exam - General Limitations: No Limitations General appearance: alert, in no apparent distress - Head Head exam: Present: atraumatic, normocephalic, normal inspection - Respiratory Respiratory exam: Absent: respiratory distress - Cardiovascular Cardiovascular Exam: Present: regular rate - Extremities Exam Extremities exam: Present: other (Point tenderness noted posterior elbow just above the olecranon process. He does have some mild swelling mainly to the lateral elbow. No apparent erythema or warmth. He does have increased pain on elbow flexion, range of motion otherwise normal. Neurovascular intact right upper extremity.) ED Course Vital Signs 06/09/20 09:51 Temperature 98.2 F Pulse Rate 84 Respiratory 20 Rate Blood Pressure 148/99 [Right] O2 Sat by Pulse 96 Oximetry Critical care attestation.: If time is entered above; I have spent that time in minutes in the direct care of this critically ill patient, excluding procedure time. ED Disposition Clinical Impression: Elbow pain, right, Gouty arthritis Disposition: DC- TO HOME OR SELFCARE Is pt being admited?: No Does the pt Need Aspirin: No Condition: Stable Instructions: Joint Pain, [id number] Additional Instructions: You can take 2 of the 25 mg in the morning and 2 of 25 mg at night until you finish the current prescription that you have been you can start the new Indocin prescription after and take as directed. Take the tylenol 3 as prescribed. Rest your elbow over the next few days that you are off. Follow-up with the primary care doctor listed on your discharge instructions. Return to the ER if your symptoms worsens or changes in any way. Prescriptions: Indomethacin 50 mg PO Q8H #15 capsule Acetaminophen/Codeine [Tylenol /Codeine # 3 tab] 1 tab PO Q6H PRN #12 tab PRN Reason: Pain , Severe (7-10) Referrals: NGUYEN HERNANDEZ MD [Staff Physician] - 3-5 Days Time of Disposition: 10:15
[2020-06-09] MEDS ORDERED: methylPREDNISolone Sod Succinate 125 MG/2 ML INJ IM ONE (10:16)
== END 2020-06-09 10:58 | disposition home or self-care (01) ==
LOC: ED 09:27
DX: M10.9 Gout, unspecified (principal); M25.521 Pain in right elbow; F17.200 Nicotine dependence, unspecified, uncomplicated; Z79.899 Other long term (current) drug therapy; Z98.890 Other specified postprocedural states
CPT/HCPCS: 96372; 99282; J2930

== ENCOUNTER 2020-07-11 03:42 | Emergency (ER) | payer SELFPAY ==
[2020-07-11 05:27] LABS: Basophils # (Auto) 0.2 K/mm3 (0.0-0.1); Basophils % (Auto) 2.8 % (0.0-1.8); Eosinophils # (Auto) 0.3 K/mm3 (0.0-0.4); Eosinophils % (Auto) 3.4 % (0.0-4.3); Hemoglobin 15.2 gm/dl (11.8-15.2); Lymphocytes # (Auto) 0.9 K/mm3 (1.2-5.4); Lymphocytes % (Auto) 10.8 % (13.4-35.0); Mean Corpuscular HGB Conc 34 % (32-34); Mean Corpuscular Volume 92 fl (84-94); Monocytes # (Auto) 0.9 K/mm3 (0.0-0.8); Monocytes % (Auto) 10.9 % (0.0-7.3); Platelet Count 289 K/mm3 (140-440); Red Blood Count 4.87 M/mm3 (3.65-5.03); Red Cell Distribution Width 14.5 % (13.2-15.2)
[2020-07-11 05:57] LABS: Alanine Aminotransferase 20 units/L (7-56); Albumin 4.3 g/dL (3.9-5); BUN/Creatinine Ratio 13; Blood Urea Nitrogen 15 mg/dL (9-20); Calcium 9.2 mg/dL (8.4-10.2); Hemolysis Index 4
[2020-07-11 05:58] LABS: Erythrocyte Sedimentation Rate 33 mm/Hr (0-20)
[2020-07-11] MEDS ORDERED: dexAMETHasone 4 MG/ML VIAL IM ONE (07:35)
--- NOTE | 2020-07-11 07:43 | Emergency Department Report ---
ED General Adult HPI - General Chief complaint: Pain General Stated complaint: GOUT PUI?: No Time Seen by Provider: 07/11/20 07:24 Source: patient Mode of arrival: Ambulatory Limitations: No Limitations - History of Present Illness Initial comments: 59 yo aa male comes to ER with knee pain consistent with his gout. He does not s ee his pcp because they charge him $250. No fall or trauma. Labs ordered by overnight PURNIMA Pt ambulatory to [facility]. -: Gradual, days(s) Quality: aching Consistency: constant Improves with: none Worsens with: none Associated Symptoms: denies other symptoms Treatments Prior to Arrival: none - Related Data Previous Rx's Medication Instructions Recorded Last Taken Type Albuterol Mdi (or & Nicu Only) 2 puff IH Q6H PRN #1 inhalation 07/06/19 Unknown Rx [ProAir HFA Inhaler] Colchicine 0.6 mg PO BID #20 capsule 07/11/20 Unknown Rx Naproxen [Naprosyn] 500 mg PO BID PRN #20 tablet 07/11/20 Unknown Rx predniSONE [Deltasone] 20 mg PO DAILY #5 tablet 07/11/20 Unknown Rx Allergies Allergy/AdvReac Type Severity Reaction Status Date / Time No Known Allergies Allergy Verified 10/27/18 11:39 ED Review of Systems ROS: Stated complaint: GOUT Other details as noted in HPI Comment: All other systems reviewed and negative ED Past Medical Hx - Past Medical History Previous Medical History?: Yes Additional medical history: Gout - Surgical History Past Surgical History?: Yes Additional Surgical History: Left elbow surgery at [facility]. SKIN GRAFTS RIGHT ARM - Family History Family history: no significant - Social History Smoking Status: Current Every Day Smoker Substance Use Type: None - Medications Home Medications: Home Medications Medication Instructions Recorded Confirmed Last Taken Type Albuterol Mdi (or & Nicu Only) 2 puff IH Q6H PRN #1 inhalation 07/06/19 Unknown Rx [ProAir HFA Inhaler] Colchicine 0.6 mg PO BID #20 capsule 07/11/20 Unknown Rx Naproxen [Naprosyn] 500 mg PO BID PRN #20 tablet 07/11/20 Unknown Rx predniSONE [Deltasone] 20 mg PO DAILY #5 tablet 07/11/20 Unknown Rx ED Physical Exam - General Limitations: No Limitations General appearance: alert, in no apparent distress - Head Head exam: Present: atraumatic, normocephalic - Eye Eye exam: Present: normal appearance - ENT ENT exam: Present: mucous membranes moist - Neck Neck exam: Present: normal inspection - Respiratory Respiratory exam: Present: normal lung sounds bilaterally. Absent: respiratory distress - Cardiovascular Cardiovascular Exam: Present: regular rate, normal rhythm. Absent: systolic murmur, diastolic murmur, rubs, gallop - GI/Abdominal GI/Abdominal exam: Present: soft, normal bowel sounds - Rectal Rectal exam: Present: deferred - Extremities Exam Extremities exam: Present: normal inspection - Back Exam Back exam: Present: normal inspection - Neurological Exam Neurological exam: Present: alert, oriented X3 - Psychiatric Psychiatric exam: Present: normal affect, normal mood - Skin Skin exam: Present: warm, dry, intact, normal color. Absent: rash ED Medical Decision Making - Lab Data Result diagrams: 07/11/20 04:56 07/11/20 04:56 - Medical Decision Making Labs 07/11/20 07/11/20 04:56 04:56 WBC 8.5 RBC 4.87 Hgb 15.2 Hct 45.0 MCV 92 MCH 31 MCHC 34 RDW 14.5 Plt Count 289 Lymph % (Auto) 10.8 L Wise % (Auto) 10.9 H Eos % (Auto) 3.4 Baso % (Auto) 2.8 H Lymph # (Auto) 0.9 L Wise # (Auto) 0.9 H Eos # (Auto) 0.3 Baso # (Auto) 0.2 H Seg Neutrophils % 72.1 H Seg Neutrophils # 6.1 ESR 33 Sodium 140 Potassium 4.9 Chloride 103.7 Carbon Dioxide 24 Anion Gap 17 BUN 15 Creatinine 1.2 Estimated GFR > 60 BUN/Creatinine Ratio 13 Glucose 103 H Calcium 9.2 Total Bilirubin 0.40 AST 22 ALT 20 Alkaline Phosphatase 100 C-Reactive Protein 4.70 H Total Protein 7.0 Albumin 4.3 Albumin/Globulin Ratio 1.6 VS normal as documented manually by RN educated on the need to see pcp for his a/c gout; he is here often decadron IM dc home with rx and dc plan of care including pcp referral. - Differential Diagnosis a/c gout Critical care attestation.: If time is entered above; I have spent that time in minutes in the direct care of this critically ill patient, excluding procedure time. ED Disposition Clinical Impression: Gouty arthritis Disposition: DC-01 TO HOME OR SELFCARE Is pt being admited?: No Does the pt Need Aspirin: No Condition: Stable Instructions: Low-Purine Eating Plan Additional Instructions: FOLLOW UP WITH PCP BELOW REFERRAL BELOW MEDS ORDERED SEE ATTACHED INFORMATION ON DIET Prescriptions: Colchicine 0.6 mg PO BID #20 capsule predniSONE [Deltasone] 20 mg PO DAILY #5 tablet Naproxen [Naprosyn] 500 mg PO BID PRN #20 tablet PRN Reason: Pain Referrals: NGUYEN HERNANDEZ MD [Staff Physician] - 3-5 Days Time of Disposition: 07:43
== END 2020-07-11 08:05 | disposition home or self-care (01) ==
LOC: ED 03:42
DX: M10.9 Gout, unspecified (principal); F17.200 Nicotine dependence, unspecified, uncomplicated; Z98.890 Other specified postprocedural states; Z79.899 Other long term (current) drug therapy
CPT/HCPCS: 36415; 80053; 85025; 85652; 86140; 96372; 99283; J1100

== ENCOUNTER 2020-09-18 16:11 | Emergency (ER) | payer SELFPAY ==
[2020-09-18 16:20] VITALS: BP 152/95
--- NOTE | 2020-09-18 16:46 | Emergency Department Report ---
Upper Extremity - HPI Chief Complaint: Extremity Problem,Nontraumatic Stated Complaint: RIGHT WRIST PAIN (GOUT) Time Seen by Provider: 09/18/20 16:43 Upper Extremity: Right Wrist, Right Hand Occurred When: >5 Days Mechanism: Other Severity: mild, moderate Symptoms: Yes Pain with Movement, Yes Limited Range of Movement, Yes Weakness, Yes Swelling, No Deformity, No Numbness, No Bruising/Ecchymosis, No Laceration or Abrasion Other History: 70-uumm-ukq-year-old male with a past medical history of recurrent gouty arthritis which has been battling for multiple year presents emerge department complaining of another flareup of blood advised mom his right wrist and hand. States this is a usual site for him and his symptoms resolved with steroids and colchicine. He reports no fever, chills, sweats. No trauma, no numbness, no tingling, no chest pain, no palpitations. ED Review of Systems ROS: Stated complaint: RIGHT WRIST PAIN (GOUT) Other details as noted in HPI Comment: All other systems reviewed and negative ED Past Medical Hx - Past Medical History Previous Medical History?: Yes Additional medical history: Gout - Surgical History Past Surgical History?: Yes Additional Surgical History: Left elbow surgery at [facility]. SKIN GRAFTS RIGHT ARM - Social History Smoking Status: Current Every Day Smoker Substance Use Type: None - Medications Home Medications: Home Medications Medication Instructions Recorded Confirmed Last Taken Type Albuterol Mdi (or & Nicu Only) 2 puff IH Q6H PRN #1 inhalation 07/06/19 Unknown Rx [ProAir HFA Inhaler] Naproxen [Naprosyn] 500 mg PO BID PRN #20 tablet 07/11/20 Unknown Rx Colchicine 0.6 mg PO BID #20 capsule 09/18/20 Unknown Rx predniSONE [Deltasone] 20 mg PO DAILY #5 tablet 09/18/20 Unknown Rx traMADoL [Ultram] 50 mg PO Q6HR PRN #10 tablet 09/18/20 Unknown Rx Upper Extremity Exam - Exam General: Vital signs noted. No distress. Alert and acting appropriately. Head and Torso: No HEENT Abnormality, No Neck Tenderness, No Chest/Lungs Abnormality, No Abdominal Tenderness, No Back Tenderness Shoulder Exam: Yes Normal Range of Motion in Shoulder, No Shoulder Tenderness, No Clavicle Tenderness, No Shoulder Deformity, No AC Joint Tenderness Arm Exam: No Arm/Humerus Tenderness, No Arm Deformity Elbow: No Elbow Tenderness, No Normal Range of Motion in Elbow, No Elbow Deformity Forearm: No Forearm Tenderness, No Forearm Deformity, No Pain with Pronation, No Pain with Supination Wrist: Yes Wrist Tenderness (with swelling and redness. cap refill brisk. painful ROM), Yes Normal ROM in Wrist, No Wrist Deformity, No Snuffbox Tenderness, No Pain with Axial Thumb Compression Hand: Yes Normal ROM in Digit(s), No Hand Tenderness, No Hand Deformity, No Digit Tenderness, No Digit(s) Deformity, No Tendon Dysfunction CMS Exam: No Broken Skin, No Normal Distal Pulses, No Normal Capillary Refill, No Normal Distal Sensation ED Course Vital Signs 09/18/20 16:18 Temperature 98.2 F Pulse Rate 83 Respiratory 18 Rate Blood Pressure 152/95 [Right] O2 Sat by Pulse 97 Oximetry ED Medical Decision Making - Medical Decision Making 39-year-old -[place] male with past medical history of Edi arthritis. He reports having a known history and this is a known site but is unsure if this is a traditional gout or pseudogout. States the symptoms are typically resolved with steroids and pain medication. Advised patient the importance of following up with his primary care provider or specialist to determine the type of gout to find the best preventative measures. He did express an understanding. There is no evidence of any infectious process, fracture, Critical care attestation.: If time is entered above; I have spent that time in minutes in the direct care of this critically ill patient, excluding procedure time. ED Disposition Clinical Impression: Gouty arthritis Disposition: DC- TO HOME OR SELFCARE Is pt being admited?: No Does the pt Need Aspirin: No Condition: Stable Instructions: Low-Purine Eating Plan Prescriptions: Colchicine 0.6 mg PO BID #20 capsule predniSONE [Deltasone] 20 mg PO DAILY #5 tablet traMADoL [Ultram] 50 mg PO Q6HR PRN #10 tablet PRN Reason: Pain
[2020-09-18] MEDS ORDERED: HYDROcodone/ACETAMINOPHEN 5-325 MG TAB PO STA (17:50)
== END 2020-09-18 18:13 | disposition home or self-care (01) ==
LOC: ED 16:11
DX: M10.9 Gout, unspecified (principal); F17.200 Nicotine dependence, unspecified, uncomplicated; Z98.890 Other specified postprocedural states; Z79.899 Other long term (current) drug therapy
CPT/HCPCS: 99282

== ENCOUNTER 2020-11-25 05:21 | Emergency (ER) | payer SELFPAY ==
[2020-11-25 05:30] VITALS: BP 153/96
== END 2020-11-25 17:15 | disposition left against medical advice (07) ==
LOC: ED 05:21
DX: M10.9 Gout, unspecified (principal); Z53.21 Procedure and treatment not carried out due to patient leaving prior to being seen by health care provider

== ENCOUNTER 2021-01-03 06:51 | Emergency (ER) | payer SELFPAY ==
[2021-01-03 07:11] VITALS: BP 156/84
[2021-01-03] MEDS ORDERED: dexAMETHasone 20 MG/5 ML VIAL IM ONE (07:31)
[2021-01-03] MEDS ORDERED: COLCHICINE 0.6 MG TAB PO ONE (08:00)
--- NOTE | 2021-01-03 08:41 | Emergency Department Report ---
ED Upper Extremity Inj HPI - General Chief Complaint: Extremity Injury, Lower Stated Complaint: GOUT RT ELBOW Time Seen by Provider: 01/03/21 07:28 Source: patient Mode of arrival: Ambulatory Limitations: No Limitations - History of Present Illness Initial Comments: This is a 60-year-old male nontoxic, well nourished in appearance, no acute signs of distress presents to the ED with c/o of right elbow pain 1 day. Patient stated has history of gout and similar symptoms as today. Patient has been out of his gout medication. Patient denies any injuries or trauma. Patient denies any numbness, tingling, fever, chills, nausea, vomiting, chest pain, shortness of breath, headache, stiff neck. Patient stated has some swelling. Denies any joint redness. Patient denies decreased range of motion. Patient stated has decreased gait due to pain. Patient denies any allergies. MD Complaint: Injury to:: right, elbow -: days(s) Other Extremity Injury: Elbow: Right Place: home Severity scale (0 -10): 8 Associated Symptoms: denies other symptoms. denies: weakness, numbness, neck pain, suspects foreign body, nausea/vomiting, heard/felt popping sensat - Related Data Previous Rx's Medication Instructions Recorded Last Taken Type Albuterol Mdi (or & Nicu Only) 2 puff IH Q6H PRN #1 inhalation 07/06/19 Unknown Rx [ProAir HFA Inhaler] Colchicine 0.6 mg PO BID #20 capsule 09/18/20 Unknown Rx predniSONE [Deltasone] 20 mg PO DAILY #5 tablet 09/18/20 Unknown Rx traMADoL [Ultram] 50 mg PO Q6HR PRN #10 tablet 09/18/20 Unknown Rx Colchicine [Colcrys] 0.6 mg PO DAILY #1 tablet 01/03/21 Unknown Rx Naproxen [Naprosyn TAB] 500 mg PO BID PRN #20 tablet 01/03/21 Unknown Rx Allergies Allergy/AdvReac Type Severity Reaction Status Date / Time No Known Allergies Allergy Verified 01/03/21 07:11 ED Review of Systems ROS: Stated complaint: GOUT RT ELBOW Other details as noted in HPI Comment: All other systems reviewed and negative Constitutional: denies: chills, fever Eyes: denies: eye pain, eye discharge, vision change ENT: denies: ear pain, throat pain Respiratory: denies: cough, shortness of breath, wheezing Cardiovascular: denies: chest pain, palpitations Endocrine: no symptoms reported Gastrointestinal: denies: abdominal pain, nausea, diarrhea Genitourinary: denies: urgency, dysuria Musculoskeletal: denies: back pain, joint swelling, arthralgia Skin: denies: rash, lesions Neurological: denies: headache, weakness, paresthesias Psychiatric: denies: anxiety, depression Hematological/Lymphatic: denies: easy bleeding, easy bruising ED Past Medical Hx - Past Medical History Previous Medical History?: Yes Additional medical history: Gout - Surgical History Past Surgical History?: No Additional Surgical History: Left elbow surgery at [facility]. SKIN GRAFTS RIGHT ARM - Social History Smoking Status: Never Smoker - Medications Home Medications: Home Medications Medication Instructions Recorded Confirmed Last Taken Type Albuterol Mdi (or & Nicu Only) 2 puff IH Q6H PRN #1 inhalation 07/06/19 Unknown Rx [ProAir HFA Inhaler] Colchicine 0.6 mg PO BID #20 capsule 09/18/20 Unknown Rx predniSONE [Deltasone] 20 mg PO DAILY #5 tablet 09/18/20 Unknown Rx traMADoL [Ultram] 50 mg PO Q6HR PRN #10 tablet 09/18/20 Unknown Rx Colchicine [Colcrys] 0.6 mg PO DAILY #1 tablet 01/03/21 Unknown Rx Naproxen [Naprosyn TAB] 500 mg PO BID PRN #20 tablet 01/03/21 Unknown Rx ED Physical Exam - General Limitations: No Limitations General appearance: alert, in no apparent distress - Head Head exam: Present: atraumatic, normocephalic - Eye Eye exam: Present: normal appearance - Neck Neck exam: Present: full ROM - Respiratory Respiratory exam: Absent: respiratory distress - Cardiovascular Cardiovascular Exam: Present: regular rate - Extremities Exam Extremities exam: Present: normal inspection, full ROM, tenderness, normal capillary refill. Absent: joint swelling - Expanded Upper Extremity Exam Right General: Present: normal inspection Shoulder Exam: Present: normal inspection, full ROM. Absent: tenderness, swelling Upper Arm exam: Present: normal inspection, full ROM. Absent: tenderness, swelling Elbow exam: Present: normal inspection, full ROM, tenderness, swelling. Absent: abrasion, laceration, ecchymosis, deformity, crepidus, dislocation, erythema, effusion, pain w/ pronation/supination, tenderness over radial head Forearm Wrist exam: Present: normal inspection, full ROM. Absent: tenderness, swelling Hand Wrist exam: Present: normal inspection, full ROM. Absent: tenderness, swelling Vascular: Present: normal capillary refill. Absent: vascular compromise (Neurovascular within normal limits) - Back Exam Back exam: Present: normal inspection, full ROM - Neurological Exam Neurological exam: Present: alert, oriented X3, normal gait - Psychiatric Psychiatric exam: Present: normal affect, normal mood - Skin Skin exam: Present: warm, dry, intact, normal color. Absent: rash ED Course Vital Signs 01/03/21 06:52 Temperature 98.0 F Pulse Rate 89 Blood Pressure 156/84 - Reevaluation(s) Reevaluation #1: 01/03/21 08:37 Patient is speaking in full sentences with no signs of distress noted. ED Medical Decision Making - Medical Decision Making This is a 60-year-old male that presents with gout flare. Patient is stable and was examined by me. I referred patient to an orthopedic doctor for further evaluation. Exam does not show cellulitis or septic joint. Exam is physical is consistent with gout. Patient does have normal ROM with some tenderness on palpation and no joint swelling. No ecchymosis. no joint redness or swelling. Not warm to touch. No signs of cellulites present. Patient received colchicine and Decadron IM. Patient be discharged with colchicine and naproxen. At time of discharge, the patient does not seem toxic or ill in appearance. No acute signs of distress noted. Patient agrees to discharge treatment plan of care. No further questions noted by the patient. Critical care attestation.: If time is entered above; I have spent that time in minutes in the direct care of this critically ill patient, excluding procedure time. ED Disposition Clinical Impression: Gouty arthritis Disposition: 01 HOME / SELF CARE / HOMELESS Is pt being admited?: No Does the pt Need Aspirin: No Condition: Stable Instructions: Low-Purine Eating Plan Additional Instructions: Follow-up with a primary care doctor in 3-5 days or if symptoms worsen and continue return to emergency room as soon as possible. Prescriptions: Colchicine [Colcrys] 0.6 mg PO DAILY #1 tablet Naproxen [Naprosyn TAB] 500 mg PO BID PRN #20 tablet PRN Reason: Pain Referrals: PRIMARY CARE, [Primary Care Provider] - 3-5 Days NGUYEN HERNANDEZ MD [Staff Physician] - 3-5 Days Forms: Work/School Release Form(ED) Time of Disposition: 08:42
== END 2021-01-03 08:46 | disposition home or self-care (01) ==
LOC: ED 06:51
DX: M10.9 Gout, unspecified (principal)
CPT/HCPCS: 96372; 99282; J1100

== ENCOUNTER 2021-01-14 08:23 | Emergency (ER) | payer SELFPAY ==
[2021-01-14 08:50] VITALS: BP 130/80
[2021-01-14] MEDS ORDERED: dexAMETHasone 20 MG/5 ML VIAL IM ONE (09:26)
[2021-01-14] MEDS ORDERED: IBUPROFEN 800 MG TAB PO ONE (09:26)
[2021-01-14] MEDS ORDERED: COLCHICINE 0.6 MG TAB PO SCH (10:00)
--- NOTE | 2021-01-14 10:10 | Emergency Department Report ---
ED Lower Extremity HPI - General Chief Complaint: Extremity Injury, Lower Stated Complaint: GOUT Time Seen by Provider: 01/14/21 08:57 Source: patient Mode of arrival: Ambulatory Limitations: No Limitations - History of Present Illness Initial Comments: This is a 60-year-old male nontoxic, well nourished in appearance, no acute signs of distress presents to the ED with c/o of left knee pain and swelling that started this morning. Patient stated has history of gout and symptoms are similar. Patient denies any trauma or injuries. Patient denies any other complaints or symptoms. Patient denies any numbness, tingling, fever, chills, nausea, vomiting, chest pain, shortness of breath, headache, stiff neck. Patient denies any joint swelling or joint redness. Patient denies decreased range of motion. Patient stated has decreased gait due to pain. Patient denies any allergies. Patient stated he has been out of his colchicine medication during gout flare. -: days(s) Injury: Knee: Left Severity: mild Severity scale (0 -10): 8 Improves With: immobilization Worsens With: weight bearing, movement, palpation Associated Symptoms: swelling, able to partially bear weight. denies: snap/pop sensation, numbness, tingling, unable to bear weight - Related Data Previous Rx's Medication Instructions Recorded Last Taken Type Albuterol Mdi (or & Nicu Only) 2 puff IH Q6H PRN #1 inhalation 07/06/19 Unknown Rx [ProAir HFA Inhaler] Colchicine 0.6 mg PO BID #20 capsule 09/18/20 Unknown Rx predniSONE [Deltasone] 20 mg PO DAILY #5 tablet 09/18/20 Unknown Rx traMADoL [Ultram] 50 mg PO Q6HR PRN #10 tablet 09/18/20 Unknown Rx Colchicine [Colcrys] 0.6 mg PO DAILY #1 tablet 01/03/21 Unknown Rx Naproxen [Naprosyn TAB] 500 mg PO BID PRN #20 tablet 01/03/21 Unknown Rx Colchicine [Colcrys] 0.6 mg PO DAILY #1 tablet 01/14/21 Unknown Rx Allergies Allergy/AdvReac Type Severity Reaction Status Date / Time No Known Allergies Allergy Verified 01/14/21 08:45 ED Review of Systems ROS: Stated complaint: GOUT Other details as noted in HPI Comment: All other systems reviewed and negative Constitutional: denies: chills, fever Eyes: denies: eye pain, eye discharge, vision change ENT: denies: ear pain, throat pain Respiratory: denies: cough, shortness of breath, wheezing Cardiovascular: denies: chest pain, palpitations Endocrine: no symptoms reported Gastrointestinal: denies: abdominal pain, nausea, diarrhea Genitourinary: denies: urgency, dysuria Musculoskeletal: denies: back pain, joint swelling, arthralgia Skin: denies: rash, lesions Neurological: denies: headache, weakness, paresthesias Psychiatric: denies: anxiety, depression Hematological/Lymphatic: denies: easy bleeding, easy bruising ED Past Medical Hx - Past Medical History Additional medical history: Gout - Surgical History Additional Surgical History: Left elbow surgery at [facility]. SKIN GRAFTS RIGHT ARM - Social History Smoking Status: Smoker, Current Status Unknown Substance Use Type: Alcohol - Medications Home Medications: Home Medications Medication Instructions Recorded Confirmed Last Taken Type Albuterol Mdi (or & Nicu Only) 2 puff IH Q6H PRN #1 inhalation 07/06/19 Unknown Rx [ProAir HFA Inhaler] Colchicine 0.6 mg PO BID #20 capsule 09/18/20 Unknown Rx predniSONE [Deltasone] 20 mg PO DAILY #5 tablet 09/18/20 Unknown Rx traMADoL [Ultram] 50 mg PO Q6HR PRN #10 tablet 09/18/20 Unknown Rx Colchicine [Colcrys] 0.6 mg PO DAILY #1 tablet 01/03/21 Unknown Rx Naproxen [Naprosyn TAB] 500 mg PO BID PRN #20 tablet 01/03/21 Unknown Rx Colchicine [Colcrys] 0.6 mg PO DAILY #1 tablet 01/14/21 Unknown Rx ED Physical Exam - General Limitations: No Limitations General appearance: alert, in no apparent distress - Head Head exam: Present: atraumatic, normocephalic - Eye Eye exam: Present: normal appearance - Neck Neck exam: Present: normal inspection, full ROM. Absent: lymphadenopathy - Respiratory Respiratory exam: Absent: respiratory distress - Cardiovascular Cardiovascular Exam: Present: regular rate - Extremities Exam Extremities exam: Present: normal inspection, full ROM, tenderness, normal capillary refill. Absent: joint swelling, calf tenderness - Expanded Lower Extremity Exam Left Hip exam: Present: normal inspection, full ROM. Absent: tenderness, swelling Upper Leg exam: Present: normal inspection, full ROM. Absent: tenderness, swelling Knee exam: Present: full ROM, tenderness, swelling, full knee extension. Absent: abrasion, laceration, ecchymosis, deformity, crepidus, dislocation, erythema, effusion, pain w/ pronation/supination, posterior draw sign, pain/laxity with valgus, pain/laxity with varus Lower Leg exam: Present: normal inspection, full ROM. Absent: tenderness, swelling, abrasion, laceration, ecchymosis, deformity, crepidus, dislocation, erythema, palpable cord, Sierra's sign Ankle exam: Present: normal inspection, full ROM. Absent: tenderness, swelling Foot/Toe exam: Present: normal inspection, full ROM. Absent: tenderness, swelling Neuro vascular tendon exam: Present: no vascular compromise Gait: Positive: observed and limited by pain - Back Exam Back exam: Present: normal inspection, full ROM - Neurological Exam Neurological exam: Present: alert, oriented X3 - Psychiatric Psychiatric exam: Present: normal affect, normal mood - Skin Skin exam: Present: warm, dry, intact, normal color. Absent: rash ED Course Vital Signs 01/14/21 08:49 Temperature 98.9 F Pulse Rate 94 H Respiratory 20 Rate Blood Pressure 130/80 O2 Sat by Pulse 94 Oximetry - Reevaluation(s) Reevaluation #1: 01/14/21 10:12 Patient is speaking in full sentences with no signs of distress noted. ED Lower Extremity MDM - Medical Decision Making This is a 60-year-old male that presents with left knee gout flare. Patient is stable and was examined by me. Patient does have normal gait with some tenderness and no joint swelling. No ecchymosis. no joint redness or swelling. Not warm to touch. No signs of cellulites or septic joint present. Patient received colchicine, Decadron and naproxen for pain. At time of discharge, the patient does not seem toxic or ill in appearance. No acute signs of distress noted. Patient agrees to discharge treatment plan of care. No further questions noted by the patient. Critical care attestation.: If time is entered above; I have spent that time in minutes in the direct care of this critically ill patient, excluding procedure time. 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 Prescriptions: Colchicine [Colcrys] 0.6 mg PO DAILY #1 tablet Referrals: PRIMARY MD SYMONE [Primary Care Provider] - 3-5 Days NGUYEN HERNANDEZ MD [Staff Physician] - 3-5 Days Time of Disposition: 10:14
== END 2021-01-14 10:23 | disposition home or self-care (01) ==
LOC: ED 08:23
DX: M10.9 Gout, unspecified (principal); Z72.89 Other problems related to lifestyle; Z79.899 Other long term (current) drug therapy
CPT/HCPCS: 96372; 99282; J1100

== ENCOUNTER 2021-05-09 08:49 | Emergency (ER) | payer SELFPAY ==
[2021-05-09] MEDS ORDERED: dexAMETHasone 20 MG/5 ML VIAL IM ONE (09:55)
--- NOTE | 2021-05-09 09:55 | Emergency Department Report ---
ED Extremity Problem HPI - General Chief complaint: Extremity Injury, Upper Stated complaint: GOUT/LT WRIST Time Seen by Provider: 05/09/21 09:44 Source: patient Mode of arrival: Ambulatory Limitations: No Limitations - History of Present Illness Initial comments: 60-year-old -[place] male with a known history of gout presents to the ER today with complaints of flareup of his gout to his left wrist/left hand. He states that his symptoms started a couple days ago but got worse yesterday. He reports some swelling to the hand, and mild redness and he reports difficulty moving his wrist due to pain. Patient states that he has had gout flares in his left wrist in the past. Patient states that the only medication he has at home for gout is naproxen. He states that he took his last dose last night. He does not recall if he is ever being on allopurinol. He denies any injury to his hand or wrist, but he states that he did have a beer to drink 2 days ago. He denies any fever or chills. He denies any tingling, numbness, or any additional symptoms at this time. MD Complaint: other (Left wrist/hand pain; gout flare) -: days(s) (2) - Related Data Previous Rx's Medication Instructions Recorded Last Taken Type Albuterol Mdi (or & Nicu Only) 2 puff IH Q6H PRN #1 inhalation 07/06/19 Unknown Rx [ProAir HFA Inhaler] Acetaminophen/Codeine [Tylenol 1 tab PO Q6H PRN #12 tab 05/09/21 Unknown Rx /Codeine # 3 tab] Indomethacin 50 mg PO Q8H #30 cap 05/09/21 Unknown Rx Naproxen 500 mg PO BID PRN #60 05/09/21 Unknown Rx Naproxen [Naprosyn TAB] 500 mg PO BID PRN #20 tablet 05/09/21 Unknown Rx Allergies Allergy/AdvReac Type Severity Reaction Status Date / Time No Known Allergies Allergy Verified 01/14/21 08:45 ED Review of Systems ROS: Stated complaint: GOUT/LT WRIST Other details as noted in HPI Comment: All other systems reviewed and negative Respiratory: denies: cough, shortness of breath, SOB with exertion, SOB at rest, wheezing Cardiovascular: denies: chest pain, palpitations, dyspnea on exertion, edema, syncope, paroxysmal nocturnal dyspnea Musculoskeletal: joint swelling, arthralgia, myalgia Skin: denies: rash, lesions, change in color, change in hair/nails, pruritus Neurological: denies: headache, weakness, paresthesias Psychiatric: denies: anxiety, depression ED Past Medical Hx - Past Medical History Previous Medical History?: Yes Additional medical history: Gout - Surgical History Additional Surgical History: Left elbow surgery at [facility]. SKIN GRAFTS RIGHT ARM - Social History Smoking Status: Smoker, Current Status Unknown Substance Use Type: Alcohol - Medications Home Medications: Home Medications Medication Instructions Recorded Confirmed Last Taken Type Albuterol Mdi (or & Nicu Only) 2 puff IH Q6H PRN #1 inhalation 07/06/19 Unknown Rx [ProAir HFA Inhaler] Acetaminophen/Codeine [Tylenol 1 tab PO Q6H PRN #12 tab 05/09/21 Unknown Rx /Codeine # 3 tab] Indomethacin 50 mg PO Q8H #30 cap 05/09/21 Unknown Rx Naproxen 500 mg PO BID PRN #60 05/09/21 Unknown Rx Naproxen [Naprosyn TAB] 500 mg PO BID PRN #20 tablet 05/09/21 Unknown Rx ED Physical Exam - General Limitations: No Limitations General appearance: alert, in no apparent distress - Head Head exam: Present: atraumatic, normocephalic, normal inspection - Respiratory Respiratory exam: Present: normal lung sounds bilaterally. Absent: respiratory distress, wheezes, rales, rhonchi - Cardiovascular Cardiovascular Exam: Present: regular rate, normal rhythm, normal heart sounds - GI/Abdominal GI/Abdominal exam: Present: soft. Absent: distended, tenderness, guarding, rebound - Expanded Upper Extremity Exam Left Hand L/R Back: 1 - Exquisite tenderness with palpation with some mild swelling and subtle erythema. There is no streaking redness. No significant lymphangitis. Patient does have mild reduction of range of motion of the wrist due to pain. Range of motion of the fingers causes pain, but otherwise normal. Radial pulses normal. Cap refill is normal. Sensation is normal. - Neurological Exam Neurological exam: Present: alert, oriented X3, CN II-XII intact, normal gait - Psychiatric Psychiatric exam: Present: normal affect, normal mood - Skin Skin exam: Present: intact ED Course Vital Signs 05/09/21 05/09/21 09:22 10:43 Temperature 98.8 F Pulse Rate 90 70 Respiratory 16 16 Rate Blood Pressure 140/92 Blood Pressure 158/102 [Right] O2 Sat by Pulse 93 98 Oximetry Critical care attestation.: If time is entered above; I have spent that time in minutes in the direct care of this critically ill patient, excluding procedure time. ED Disposition Clinical Impression: Acute gout Disposition: HOME / SELF CARE / HOMELESS Is pt being admited?: No Does the pt Need Aspirin: No Condition: Stable Instructions: Low-Purine Eating Plan Additional Instructions: I recommend that you take the indomethacin, and the Tylenol threes as prescribed. You will be given a prescription for naproxen but only take it as needed and after completion of the indomethacin. Follow-up with your primary care doctor if you do not have 1 1 will be provided to you in your discharge instructions. Return to the ER if your symptoms worsens or changes in any way. Prescriptions: Indomethacin 50 mg PO Q8H #30 cap Naproxen [Naprosyn TAB] 500 mg PO BID PRN #20 tablet PRN Reason: Pain Naproxen 500 mg PO BID PRN #60 PRN Reason: pain Acetaminophen/Codeine [Tylenol /Codeine # 3 tab] 1 tab PO Q6H PRN #12 tab PRN Reason: Pain , Severe (7-10) Referrals: PEG MORRIS MD [Staff Physician] - 3-5 Days Time of Disposition: 09:55
[2021-05-09 10:47] VITALS: BP 158/102
== END 2021-05-09 10:49 | disposition home or self-care (01) ==
LOC: ED 08:49
DX: M10.9 Gout, unspecified (principal); F17.200 Nicotine dependence, unspecified, uncomplicated
CPT/HCPCS: 96372; 99282; J1100

== ENCOUNTER 2021-06-03 11:13 | Emergency (ER) | payer SELFPAY | END 2021-06-03 12:27 | disposition left against medical advice (07) | LOC: ED 11:13 | DX: M10.9 Gout, unspecified (principal); Z53.21 Procedure and treatment not carried out due to patient leaving prior to being seen by health care provider ==

== ENCOUNTER 2021-06-03 23:47 | Emergency (ER) | payer SELFPAY ==
[2021-06-04 02:25] VITALS: BP 156/83
[2021-06-04] MEDS ORDERED: dexAMETHasone 4 MG/ML VIAL IM ONE (05:41)
[2021-06-04] MEDS ORDERED: oxyCODONE /ACETAMINOPHEN 5-325MG TAB PO ONE (05:42)
--- NOTE | 2021-06-04 05:47 | Emergency Department Report ---
Upper Extremity - HPI Chief Complaint: Extremity Injury, Upper Stated Complaint: RIGHT HAND PAIN/GOUT Time Seen by Provider: 06/04/21 05:41 Upper Extremity: Right Wrist, Right Hand Occurred When: 2 Days Mechanism: Other (gout flare up for the last 1 day and ran out of his gout medications. ) Symptoms: Yes Pain with Movement, Yes Limited Range of Movement, Yes Swelling, No Deformity, No Numbness, No Bruising/Ecchymosis, No Laceration or Abrasion ED Review of Systems ROS: Stated complaint: RIGHT HAND PAIN/GOUT Other details as noted in HPI Comment: All other systems reviewed and negative ED Past Medical Hx - Past Medical History Additional medical history: Gout - Surgical History Additional Surgical History: Left elbow surgery at [facility]. SKIN GRAFTS RIGHT ARM - Social History Smoking Status: Smoker, Current Status Unknown Substance Use Type: Alcohol - Medications Home Medications: Home Medications Medication Instructions Recorded Confirmed Last Taken Type Albuterol Mdi (or & Nicu Only) 2 puff IH Q6H PRN #1 inhalation 07/06/19 Unknown Rx [ProAir HFA Inhaler] Naproxen 500 mg PO BID PRN #60 05/09/21 Unknown Rx Naproxen [Naprosyn TAB] 500 mg PO BID PRN #20 tablet 05/09/21 Unknown Rx Acetaminophen/Codeine [Tylenol 1 tab PO Q6H PRN #12 tab 06/04/21 Unknown Rx /Codeine # 3 tab] Colchicine 0.6 mg PO Q2HR #20 06/04/21 Unknown Rx Indomethacin 50 mg PO Q8H #30 cap 06/04/21 Unknown Rx Upper Extremity Exam - Exam General: Vital signs noted. No distress. Alert and acting appropriately. Head and Torso: No HEENT Abnormality, No Neck Tenderness, No Chest/Lungs Abnormality, No Abdominal Tenderness, No Back Tenderness Shoulder Exam: Yes Normal Range of Motion in Shoulder, No Shoulder Tenderness, No Clavicle Tenderness, No Shoulder Deformity, No AC Joint Tenderness Arm Exam: No Arm/Humerus Tenderness, No Arm Deformity Elbow: No Elbow Tenderness, No Normal Range of Motion in Elbow, No Elbow Deformity Forearm: No Forearm Tenderness, No Forearm Deformity, No Pain with Pronation, No Pain with Supination Wrist: Yes Wrist Tenderness, Yes Normal ROM in Wrist, No Wrist Deformity, No Snuffbox Tenderness, No Pain with Axial Thumb Compression Hand: Yes Hand Tenderness (red swollen right wrist with mild warmth and redness. cap refill brisk. pulse 2+), Yes Normal ROM in Digit(s), No Hand Deformity, No Digit Tenderness, No Digit(s) Deformity, No Tendon Dysfunction CMS Exam: Yes Normal Capillary Refill, No Broken Skin, No Normal Distal Pulses, No Normal Distal Sensation ED Course Vital Signs 06/04/21 02:19 Temperature 98.2 F Pulse Rate 78 Respiratory 18 Rate Blood Pressure 156/83 [Right] O2 Sat by Pulse 98 Oximetry Critical care attestation.: If time is entered above; I have spent that time in minutes in the direct care of this critically ill patient, excluding procedure time. ED Disposition Clinical Impression: Gouty arthritis Disposition: HOME / SELF CARE / HOMELESS Is pt being admited?: No Does the pt Need Aspirin: No Condition: Stable Instructions: Low-Purine Eating Plan, Uric Acid Nephropathy, Calcium Pyrophosphate Deposition Prescriptions: Colchicine 0.6 mg PO Q2HR #20 Indomethacin 50 mg PO Q8H #30 cap Acetaminophen/Codeine [Tylenol /Codeine # 3 tab] 1 tab PO Q6H PRN #12 tab PRN Reason: Pain , Severe (7-10) Referrals: [facility] [Provider Group] - 3-5 Days ROLLY TOWNSEND MD [Staff Physician] - 3-5 Days
== END 2021-06-04 06:04 | disposition home or self-care (01) ==
LOC: ED 23:47
DX: M10.9 Gout, unspecified (principal); F17.200 Nicotine dependence, unspecified, uncomplicated; F10.20 Alcohol dependence, uncomplicated
CPT/HCPCS: 96372; 99282; J1100

== ENCOUNTER 2021-06-05 11:08 | Emergency (ER) | payer SELFPAY ==
[2021-06-05 12:43] VITALS: BP 146/88
[2021-06-05] MEDS ORDERED: methylPREDNISolone ACETATE 80 MG/1 ML INJ IM ONE (13:03)
[2021-06-05] MEDS ORDERED: COLCHICINE 0.6 MG TAB PO ONE (13:03)
--- NOTE | 2021-06-05 13:04 | Emergency Department Report ---
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 He does not have the money to get his meds filled from the other day. no new trauma hx a/c gout - Related Data Previous Rx's Medication Instructions Recorded Last Taken Type Albuterol Mdi (or & Nicu Only) 2 puff IH Q6H PRN #1 inhalation 07/06/19 Unknown Rx [ProAir HFA Inhaler] Naproxen 500 mg PO BID PRN #60 05/09/21 Unknown Rx Naproxen [Naprosyn TAB] 500 mg PO BID PRN #20 tablet 05/09/21 Unknown Rx Acetaminophen/Codeine [Tylenol 1 tab PO Q6H PRN #12 tab 06/04/21 Unknown Rx /Codeine # 3 tab] Colchicine 0.6 mg PO Q2HR #20 06/04/21 Unknown Rx Indomethacin 50 mg PO Q8H #30 cap 06/04/21 Unknown Rx Allergies Allergy/AdvReac Type Severity Reaction Status Date / Time No Known Allergies Allergy Verified 01/14/21 08:45 ED Review of Systems ROS: Stated complaint: GOUT SEEN HER 3 DAYS AGO Other details as noted in HPI Comment: All other systems reviewed and negative ED Past Medical Hx - Past Medical History Previous Medical History?: Yes Additional medical history: Gout - Surgical History Past Surgical History?: Yes Additional Surgical History: Left elbow surgery at [facility]. SKIN GRAFTS RIGHT ARM - Family History Family history: no significant - Social History Smoking Status: Smoker, Current Status Unknown Substance Use Type: Alcohol - Medications Home Medications: Home Medications Medication Instructions Recorded Confirmed Last Taken Type Albuterol Mdi (or & Nicu Only) 2 puff IH Q6H PRN #1 inhalation 07/06/19 Unknown Rx [ProAir HFA Inhaler] Naproxen 500 mg PO BID PRN #60 05/09/21 Unknown Rx Naproxen [Naprosyn TAB] 500 mg PO BID PRN #20 tablet 05/09/21 Unknown Rx Acetaminophen/Codeine [Tylenol 1 tab PO Q6H PRN #12 tab 06/04/21 Unknown Rx /Codeine # 3 tab] Colchicine 0.6 mg PO Q2HR #20 06/04/21 Unknown Rx Indomethacin 50 mg PO Q8H #30 cap 06/04/21 Unknown Rx ED Physical Exam - General Limitations: No Limitations General appearance: alert, in no apparent distress - Head Head exam: Present: atraumatic, normocephalic - Eye Eye exam: Present: normal appearance - ENT ENT exam: Present: mucous membranes moist - Neck Neck exam: Present: normal inspection - Respiratory Respiratory exam: Present: normal lung sounds bilaterally. Absent: respiratory distress - Cardiovascular Cardiovascular Exam: Present: regular rate, normal rhythm. Absent: systolic murmur, diastolic murmur, rubs, gallop - GI/Abdominal GI/Abdominal exam: Present: soft, normal bowel sounds - Rectal Rectal exam: Present: deferred - Extremities Exam Extremities exam: Present: normal inspection - Expanded Upper Extremity Exam Right Elbow exam: Present: normal inspection Forearm Wrist exam: Present: normal inspection Hand Wrist exam: Present: tenderness, swelling - Back Exam Back exam: Present: normal inspection - Neurological Exam Neurological exam: Present: alert, oriented X3 - Psychiatric Psychiatric exam: Present: normal affect, normal mood - Skin Skin exam: Present: warm, dry, intact, normal color. Absent: rash ED Course Vital Signs 06/05/21 12:41 Temperature 98.5 F Pulse Rate 73 Respiratory 18 Rate Blood Pressure 146/88 [Right] O2 Sat by Pulse 98 Oximetry ED Recheck MDM - Core Measures Measure Exclusions: not indicated - Medical Decision Making a/c gout Vital Signs 06/05/21 12:41 Temperature 98.5 F Pulse Rate 73 Respiratory 18 Rate Blood Pressure 146/88 [Right] O2 Sat by Pulse 98 Oximetry medicated in ER dc home with dc plan of care. We have discussed goodrx and how it can help him with med cost. Referral to pcp. Verbalizes understanding of the plan of care. Critical care attestation.: If time is entered above; I have spent that time in minutes in the direct care of this critically ill patient, excluding procedure time. ED Disposition Clinical Impression: Gouty arthritis Disposition: HOME / SELF CARE / HOMELESS Is pt being admited?: No Does the pt Need Aspirin: No Condition: Stable Instructions: Low-Purine Eating Plan Additional Instructions: get meds filled autumn follow up with pcp referral below Referrals: PRIMARY CAREMD [Primary Care Provider] - 3-5 Days NGUYEN HERNANDEZ MD [Staff Physician] - 3-5 Days Time of Disposition: 13:06
== END 2021-06-05 14:21 | disposition home or self-care (01) ==
LOC: ED 11:08
DX: M10.9 Gout, unspecified (principal); F17.200 Nicotine dependence, unspecified, uncomplicated; F10.20 Alcohol dependence, uncomplicated
CPT/HCPCS: 96372; 99282; J1040

== ENCOUNTER 2021-09-24 14:54 | Emergency (ER) | payer SELFPAY ==
[2021-09-24 15:23] VITALS: BP 142/86
[2021-09-24] MEDS ORDERED: ACETAMINOPHEN W/CODEINE 300-30 MG TAB PO ONE (20:56)
[2021-09-24] MEDS ORDERED: IBUPROFEN 800 MG TAB PO ONE (20:56)
[2021-09-24] MEDS ORDERED: predniSONE 20 MG TAB PO ONE (20:56)
--- NOTE | 2021-09-24 21:05 | Emergency Department Report ---
ED General Adult HPI - General Chief complaint: Pain General Stated complaint: GOUT Time Seen by Provider: 09/24/21 20:47 Source: patient Mode of arrival: Ambulatory Limitations: No Limitations - History of Present Illness Initial comments: Patient 60-year-old male with history of gout left ankle who presents for gout pain in the left ankle x2 days. He states he is out of his gout medicine. Usual treatment is indomethacin, colchicine and or NSAIDs. Patient states been unable to see primary care doctor for the past month. Pain today is rated at 5/ 10. Pain is exacerbated by weightbearing. Pain is relieved by offloading and rest. Patient states mild swelling there is no abrasion laceration or bleeding. No deformity. There is been no fall injury or trauma. There is been no fever or chills. This is a normal gout flare for this patient. - Related Data Previous Rx's Medication Instructions Recorded Last Taken Type Albuterol Mdi (or & Nicu Only) 2 puff IH Q6H PRN #1 inhalation 07/06/19 Unknown Rx [ProAir HFA Inhaler] Naproxen 500 mg PO BID PRN #60 05/09/21 Unknown Rx Naproxen [Naprosyn TAB] 500 mg PO BID PRN #20 tablet 05/09/21 Unknown Rx Acetaminophen/Codeine [Tylenol 1 tab PO Q6H PRN #12 tab 06/04/21 Unknown Rx /Codeine # 3 tab] Colchicine 0.6 mg PO Q2HR #20 06/04/21 Unknown Rx Indomethacin 50 mg PO Q8H #30 cap 09/24/21 Unknown Rx predniSONE [Deltasone] 40 mg PO QDAY 5 Days #10 tab 09/24/21 Unknown Rx Allergies Allergy/AdvReac Type Severity Reaction Status Date / Time No Known Allergies Allergy Verified 01/14/21 08:45 ED Review of Systems ROS: Stated complaint: GOUT Other details as noted in HPI Constitutional: denies: chills, fever Eyes: denies: eye pain, eye discharge, vision change ENT: denies: ear pain, throat pain Respiratory: denies: cough, shortness of breath, wheezing Cardiovascular: denies: chest pain, palpitations Endocrine: no symptoms reported Gastrointestinal: denies: abdominal pain, nausea, diarrhea Genitourinary: denies: urgency, dysuria Musculoskeletal: joint swelling (Left ankle pain and swelling), other Skin: denies: rash, lesions Neurological: denies: headache, weakness, paresthesias Psychiatric: denies: anxiety, depression Hematological/Lymphatic: denies: easy bleeding, easy bruising ED Past Medical Hx - Past Medical History Additional medical history: Gout - Surgical History Additional Surgical History: Left elbow surgery at [facility]. SKIN GRAFTS RIGHT ARM - Social History Smoking Status: Never Smoker - Medications Home Medications: Home Medications Medication Instructions Recorded Confirmed Last Taken Type Albuterol Mdi (or & Nicu Only) 2 puff IH Q6H PRN #1 inhalation 07/06/19 Unknown Rx [ProAir HFA Inhaler] Naproxen 500 mg PO BID PRN #60 05/09/21 Unknown Rx Naproxen [Naprosyn TAB] 500 mg PO BID PRN #20 tablet 05/09/21 Unknown Rx Acetaminophen/Codeine [Tylenol 1 tab PO Q6H PRN #12 tab 06/04/21 Unknown Rx /Codeine # 3 tab] Colchicine 0.6 mg PO Q2HR #20 06/04/21 Unknown Rx Indomethacin 50 mg PO Q8H #30 cap 09/24/21 Unknown Rx predniSONE [Deltasone] 40 mg PO QDAY 5 Days #10 tab 09/24/21 Unknown Rx ED Physical Exam - General Limitations: No Limitations General appearance: alert, in no apparent distress - Head Head exam: Present: normocephalic - Eye Eye exam: Present: EOMI Pupils: Present: normal accommodation - ENT ENT exam: Present: mucous membranes moist - Neck Neck exam: Present: normal inspection, full ROM. Absent: tenderness, lymphadenopathy - Respiratory Respiratory exam: Present: normal lung sounds bilaterally. Absent: respiratory distress, wheezes - Cardiovascular Cardiovascular Exam: Present: regular rate, normal rhythm, normal heart sounds. Absent: systolic murmur, diastolic murmur, rubs, gallop - GI/Abdominal GI/Abdominal exam: Present: soft, normal bowel sounds. Absent: distended, tenderness - Rectal Rectal exam: Present: deferred - Extremities Exam Extremities exam: Present: normal inspection, full ROM, tenderness (Left lateral ankle), normal capillary refill, joint swelling (Left ankle swelling and pain) - Expanded Lower Extremity Exam Left Ankle exam: Present: full ROM, tenderness (Left lateral distal pulses intact SHOE MAKER less than 3 seconds range of motion is intact), swelling. Absent: abrasion, laceration, ecchymosis, deformity, crepidus, dislocation, erythema, anterior draw sign Foot/Toe exam: Present: tenderness, swelling Neuro vascular tendon exam: Absent: pulse deficit (Left lateral), motor deficit, sensory deficit, tendon deficit Gait: Positive: observed and limited by pain - Back Exam Back exam: Present: normal inspection. Absent: CVA tenderness (R), CVA tenderness (L) - Neurological Exam Neurological exam: Present: alert, oriented X3, CN II-XII intact, reflexes normal. Absent: motor sensory deficit - Expanded Neurological Exam Expanded Patient oriented to: Present: person, place, time Speech: Present: fluid speech Motor strength exam: RLE: 5, LLE: 5 DTR: ankle (R): 1+, ankle (L): 1+ Best Eye Response (Karen): (4) open spontaneously Best Motor Response ([place]): (6) obeys commands Best Verbal Response (Karen): (5) oriented Karen Total: 15 - Psychiatric Psychiatric exam: Present: normal affect, normal mood - Skin Skin exam: Present: warm, dry, intact, normal color. Absent: rash ED Course Vital Signs 09/24/21 15:18 Temperature 97 F L Pulse Rate 85 Respiratory 16 Rate Blood Pressure 142/86 O2 Sat by Pulse 97 Oximetry ED Medical Decision Making - Medical Decision Making This is a normal gout exacerbation for this patient. Left ankle exam moderate left lateral swelling no fever no ecchymosis no deformity. Distal pulses are intact SHOE MAKER less than 3 seconds bilateral patient is amatory with minimal limp. Pain is improved with NSAIDs per patient plan refill medications. Follow-up primary care doctor in 2 to 3 days. Return to emergency department should symptoms worsen. Patient verbalized agreement understanding discharge plan. Patient DC'd home in stable condition at this time. Critical care attestation.: If time is entered above; I have spent that time in minutes in the direct care of this critically ill patient, excluding procedure time. ED Disposition Clinical Impression: Gouty arthritis Gout of left ankle Qualifiers: Gout etiology: unspecified cause Chronicity: acute Qualified Code(s): M10.9 - Gout, unspecified Disposition: HOME / SELF CARE / HOMELESS Is pt being admited?: No Does the pt Need Aspirin: No Condition: Stable Instructions: Low-Purine Eating Plan, Arthritis Additional Instructions: Take medication as prescribed, follow-up with your primary care doctor in 2 to 3 days. Return to emergency department should symptoms worsen. Prescriptions: predniSONE [Deltasone] 40 mg PO QDAY 5 Days #10 tab Indomethacin 50 mg PO Q8H #30 cap Referrals: KARO MUÑIZ MD [Staff Physician] - 3-5 Days Forms: Work/School Release Form(ED) Time of Disposition: 21:09
== END 2021-09-24 21:40 | disposition home or self-care (01) ==
LOC: ED 14:54
DX: M10.9 Gout, unspecified (principal); Z79.899 Other long term (current) drug therapy
CPT/HCPCS: 99282

== ENCOUNTER 2021-10-06 08:12 | Emergency (ER) | payer SELFPAY ==
[2021-10-06] MEDS ORDERED: COLCHICINE 0.6 MG TAB PO ONE ×2 (11:52→14:00)
[2021-10-06] MEDS ORDERED: dexAMETHasone 20 MG/5 ML VIAL IM ONE (11:52)
--- NOTE | 2021-10-06 12:06 | Emergency Department Report ---
ED Upper Extremity Inj HPI - General Chief Complaint: Extremity Problem,Nontraumatic Stated Complaint: RT ARM AND ELBOW GOUT Time Seen by Provider: 10/06/21 11:25 Source: patient Mode of arrival: Ambulatory Limitations: No Limitations - History of Present Illness Initial Comments: This is a 60-year-old male nontoxic, well nourished in appearance, no acute signs of distress presents to the ED with c/o of right wrist and elbow pain with swelling x 2 days. Patient did has history of gout and symptoms are consistent with gout flareup. Patient denies any trauma or injuries. Patient denies any numbness, tingling, fever, chills, nausea, vomiting, chest pain, shortness of breath, headache, stiff neck. Patient denies any joint swelling or joint redne ss. Patient denies decreased range of motion. Patient denies any allergies. MD Complaint: Injury to:: right, elbow, wrist -: days(s) Other Extremity Injury: Wrist: Right, Elbow: Right Severity scale (0 -10): 3 Improves With: immobilization Worsens With: movement of extremity Associated Symptoms: denies other symptoms. denies: weakness, numbness, neck pain, suspects foreign body, nausea/vomiting, heard/felt popping sensat - Related Data Previous Rx's Medication Instructions Recorded Last Taken Type Albuterol Mdi (or & Nicu Only) 2 puff IH Q6H PRN #1 inhalation 07/06/19 Unknown Rx [ProAir HFA Inhaler] Naproxen 500 mg PO BID PRN #60 05/09/21 Unknown Rx Naproxen [Naprosyn TAB] 500 mg PO BID PRN #20 tablet 05/09/21 Unknown Rx Acetaminophen/Codeine [Tylenol 1 tab PO Q6H PRN #12 tab 06/04/21 Unknown Rx /Codeine # 3 tab] Colchicine 0.6 mg PO Q2HR #20 06/04/21 Unknown Rx Indomethacin 50 mg PO Q8H #30 cap 09/24/21 Unknown Rx predniSONE [Deltasone] 40 mg PO QDAY 5 Days #10 tab 09/24/21 Unknown Rx Colchicine 0.6 mg PO DAILY #3 tab 10/06/21 Unknown Rx Allergies Allergy/AdvReac Type Severity Reaction Status Date / Time No Known Allergies Allergy Verified 01/14/21 08:45 ED Review of Systems ROS: Stated complaint: RT ARM AND ELBOW GOUT Other details as noted in HPI Comment: All other systems reviewed and negative Constitutional: denies: chills, fever Eyes: denies: eye pain, eye discharge, vision change ENT: denies: ear pain, throat pain Respiratory: denies: cough, shortness of breath, wheezing Cardiovascular: denies: chest pain, palpitations Endocrine: no symptoms reported Gastrointestinal: denies: abdominal pain, nausea, diarrhea Genitourinary: denies: urgency, dysuria Musculoskeletal: denies: back pain, joint swelling, arthralgia Skin: denies: rash, lesions Neurological: denies: headache, weakness, paresthesias Psychiatric: denies: anxiety, depression Hematological/Lymphatic: denies: easy bleeding, easy bruising ED Past Medical Hx - Past Medical History Additional medical history: Gout - Surgical History Additional Surgical History: Left elbow surgery at [facility]. SKIN GRAFTS RIGHT ARM - Social History Smoking Status: Current Every Day Smoker - Medications Home Medications: Home Medications Medication Instructions Recorded Confirmed Last Taken Type Albuterol Mdi (or & Nicu Only) 2 puff IH Q6H PRN #1 inhalation 07/06/19 Unknown Rx [ProAir HFA Inhaler] Naproxen 500 mg PO BID PRN #60 05/09/21 Unknown Rx Naproxen [Naprosyn TAB] 500 mg PO BID PRN #20 tablet 05/09/21 Unknown Rx Acetaminophen/Codeine [Tylenol 1 tab PO Q6H PRN #12 tab 06/04/21 Unknown Rx /Codeine # 3 tab] Colchicine 0.6 mg PO Q2HR #20 06/04/21 Unknown Rx Indomethacin 50 mg PO Q8H #30 cap 09/24/21 Unknown Rx predniSONE [Deltasone] 40 mg PO QDAY 5 Days #10 tab 09/24/21 Unknown Rx Colchicine 0.6 mg PO DAILY #3 tab 10/06/21 Unknown Rx ED Physical Exam - General Limitations: No Limitations General appearance: alert, in no apparent distress - Head Head exam: Present: atraumatic, normocephalic - Eye Eye exam: Present: normal appearance - Neck Neck exam: Present: normal inspection, full ROM. Absent: lymphadenopathy - Respiratory Respiratory exam: Absent: respiratory distress - Cardiovascular Cardiovascular Exam: Present: regular rate - Extremities Exam Extremities exam: Present: normal inspection, full ROM, tenderness, normal capillary refill. Absent: joint swelling - Expanded Upper Extremity Exam Right General: Present: normal inspection Shoulder Exam: Present: normal inspection, full ROM. Absent: tenderness, swelling Upper Arm exam: Present: normal inspection, full ROM. Absent: tenderness, swelling Elbow exam: Present: normal inspection, full ROM, tenderness, swelling. Absent: abrasion, laceration, ecchymosis, deformity, crepidus, dislocation, erythema, effusion, pain w/ pronation/supination, tenderness over radial head Forearm Wrist exam: Present: normal inspection, full ROM, tenderness, swelling. Absent: abrasion, laceration, ecchymosis, deformity, crepidus, dislocation, remington thema, tenderness over anatomical snuff box, pain with axial thumb loading Vascular: Present: normal capillary refill. Absent: vascular compromise (Neurovascular within normal limits) - Back Exam Back exam: Present: normal inspection, full ROM - Neurological Exam Neurological exam: Present: alert, oriented X3, normal gait - Psychiatric Psychiatric exam: Present: normal affect, normal mood - Skin Skin exam: Present: warm, dry, intact, normal color. Absent: rash ED Course Vital Signs 10/06/21 08:23 Temperature 98.7 F Pulse Rate 96 H Respiratory 16 Rate Blood Pressure 128/84 O2 Sat by Pulse 100 Oximetry - Reevaluation(s) Reevaluation #1: 10/06/21 12:04 Patient is speaking in full sentences with no signs of distress noted. ED Medical Decision Making - Medical Decision Making This is a 60-year-old male that presents with gout flare. Patient is stable and was examined by me. Patient does have normal ROM with some tenderness and no joint swelling. No ecchymosis. no joint redness or swelling. Not warm to touch. No signs of cellulites present. Patient received Decadron and colchicine.. Patient is discharged with colchicine. At time of discharge, the patient does not seem toxic or ill in appearance. No acute signs of distress noted. Patient agrees to discharge treatment plan of care. No further questions noted by the patient. Critical care attestation.: If time is entered above; I have spent that time in minutes in the direct care of this critically ill patient, excluding procedure time. ED Disposition Clinical Impression: Gouty arthritis Disposition: HOME / SELF CARE / HOMELESS Is pt being admited?: No Does the pt Need Aspirin: No Condition: Stable Instructions: Low-Purine Eating Plan Additional Instructions: Follow-up with a primary care doctor in 3-5 days or if symptoms worsen and continue return to emergency room as soon as possible. Prescriptions: Colchicine 0.6 mg PO DAILY #3 tab Referrals: PRIMARY CARE, [Referring] - 3-5 Days NGUYEN HERNANDEZ MD [Staff Physician] - 3-5 Days Time of Disposition: 12:07
[2021-10-06 13:51] VITALS: BP 156/89
== END 2021-10-06 13:49 | disposition home or self-care (01) ==
LOC: ED 08:12
DX: M10.9 Gout, unspecified (principal); F17.200 Nicotine dependence, unspecified, uncomplicated
CPT/HCPCS: 96372; 99282; J1100

== ENCOUNTER 2021-10-27 07:42 | Emergency (ER) | payer SELFPAY ==
[2021-10-27] MEDS ORDERED: dexAMETHasone 20 MG/5 ML VIAL IM ONE (12:43)
[2021-10-27] MEDS ORDERED: KETOROLAC 30 MG/1 ML INJ IM ONE (12:43)
--- NOTE | 2021-10-27 13:03 | Emergency Department Report ---
Upper Extremity - HPI Chief Complaint: Extremity Injury, Upper Stated Complaint: RT WRIST SWELLING Upper Extremity: Right Wrist Occurred When: 1 Day Severity: moderate Symptoms: Yes Pain with Movement, No Deformity, No Limited Range of Movement, No Numbness, No Weakness, No Swelling, No Bruising/Ecchymosis, No Laceration or Abrasion Other History: 60-year-old male with a history of gout complain of right wrist pain. He states that he was drinking alcohol x1 day ago before his gout flare. States that he is out of pain medication at home.patient is unaware of the name of medication he takes for gout. Patient has mild swelling noted to his right wrist area.He able to move without any difficulty. Denies any numbness and tingling. Patient is alert and oriented x3. No acute distress noted. No ill appearance noted. ED Review of Systems ROS: Stated complaint: RT WRIST SWELLING Other details as noted in HPI Constitutional: denies: chills, fever Eyes: denies: eye pain, eye discharge, vision change ENT: denies: ear pain, throat pain Respiratory: denies: cough, shortness of breath, wheezing Cardiovascular: denies: chest pain, palpitations Endocrine: no symptoms reported Gastrointestinal: denies: abdominal pain, nausea, diarrhea Genitourinary: denies: urgency, dysuria Musculoskeletal: joint swelling. denies: back pain, arthralgia Skin: denies: rash, lesions Neurological: denies: headache, weakness, paresthesias Psychiatric: denies: anxiety, depression Hematological/Lymphatic: denies: easy bleeding, easy bruising ED Past Medical Hx - Past Medical History Previous Medical History?: Yes Hx Arthritis: Yes (gout) Additional medical history: Gout - Surgical History Past Surgical History?: Yes Additional Surgical History: Left elbow surgery at [facility]. SKIN GRAFTS RIGHT ARM - Social History Smoking Status: Current Every Day Smoker - Medications Home Medications: Home Medications Medication Instructions Recorded Confirmed Last Taken Type Albuterol Mdi (or & Nicu Only) 2 puff IH Q6H PRN #1 inhalation 07/06/19 Unknown Rx [ProAir HFA Inhaler] Naproxen 500 mg PO BID PRN #60 05/09/21 Unknown Rx Naproxen [Naprosyn TAB] 500 mg PO BID PRN #20 tablet 05/09/21 Unknown Rx Acetaminophen/Codeine [Tylenol 1 tab PO Q6H PRN #12 tab 06/04/21 Unknown Rx /Codeine # 3 tab] Colchicine 0.6 mg PO Q2HR #20 06/04/21 Unknown Rx Indomethacin 50 mg PO Q8H #30 cap 09/24/21 Unknown Rx predniSONE [Deltasone] 40 mg PO QDAY 5 Days #10 tab 09/24/21 Unknown Rx Colchicine 0.6 mg PO DAILY #3 tab 10/06/21 Unknown Rx Naproxen [Naprosyn] 500 mg PO BID 15 Days #30 tablet 10/27/21 Unknown Rx predniSONE [Deltasone] 50 mg PO QDAY 5 Days #5 tab 10/27/21 Unknown Rx Upper Extremity Exam - Exam General: Vital signs noted. No distress. Alert and acting appropriately. Head and Torso: No HEENT Abnormality, No Neck Tenderness, No Chest/Lungs Abnormality, No Abdominal Tenderness, No Back Tenderness Shoulder Exam: Yes Normal Range of Motion in Shoulder, No Shoulder Tenderness, No Clavicle Tenderness, No Shoulder Deformity, No AC Joint Tenderness Arm Exam: No Arm/Humerus Tenderness, No Arm Deformity Elbow: No Elbow Tenderness, No Normal Range of Motion in Elbow, No Elbow Deformity Forearm: No Forearm Tenderness, No Forearm Deformity, No Pain with Pronation, No Pain with Supination Wrist: Yes Wrist Tenderness, Yes Normal ROM in Wrist, No Wrist Deformity, No Snuffbox Tenderness, No Pain with Axial Thumb Compression Hand: Yes Normal ROM in Digit(s), No Hand Tenderness, No Hand Deformity, No Digit Tenderness, No Digit(s) Deformity, No Tendon Dysfunction CMS Exam: No Broken Skin, No Normal Distal Pulses, No Normal Capillary Refill, No Normal Distal Sensation ED Course Vital Signs 10/27/21 08:06 Temperature 97.8 F Pulse Rate 73 Respiratory 20 Rate Blood Pressure 136/93 [Right] O2 Sat by Pulse 96 Oximetry ED Medical Decision Making - Medical Decision Making 60-year-old male with a history of gout complain of right wrist pain. He states that he was drinking alcohol x1 day ago before his gout flare. States that he is out of pain medication at home.patient is unaware of the name of medication he takes for gout. patient has been mild swelling noted to his right wrist area.,He able to move without any difficulty. He denies any trauma. No obvious deformity noted. Physical examination patient has mild swelling to the wrist area. Patient is given Decadron 10 mg IM and Toradol 30 mg IM. Rechecked the patient is resting quietly quietly and comfortable and feeling better. I discussed the results of diagnostic study, my clinical impression and the plan for further treatment with the patient. Patient agrees with plan and discharge at this present time. All question addressed. I have given the patient instruction regarding a diagnosis ,expectation ,follow- up and return precaution. I explained to the patient that emergent condition may arise and to return to the ED for new worsen and any new persisting condition. I have explained the importance of following up with the primary care physician or referral physician listed below has instructed. The patient verbalized understanding of discharge instruction. Critical care attestation.: If time is entered above; I have spent that time in minutes in the direct care of this critically ill patient, excluding procedure time. ED Disposition Clinical Impression: Gout Qualifiers: Gout site: wrist Gout etiology: unspecified cause Chronicity: acute Laterality: right Qualified Code(s): M10.9 - Gout, unspecified Disposition: 01 HOME / SELF CARE / HOMELESS Is pt being admited?: No Does the pt Need Aspirin: No Condition: Stable Instructions: Low-Purine Eating Plan Additional Instructions: Take medication as prescribed Return to ED for any worsening symptom Prescriptions: predniSONE [Deltasone] 50 mg PO QDAY 5 Days #5 tab Naproxen [Naprosyn] 500 mg PO BID 15 Days #30 tablet Referrals: [facility] [Provider Group] - 3-5 Days Forms: Work/School Release Form(ED) Time of Disposition: 13:05
[2021-10-27 13:25] VITALS: BP 130/95
== END 2021-10-27 13:15 | disposition home or self-care (01) ==
LOC: ED 07:42
DX: M10.9 Gout, unspecified (principal); Z98.890 Other specified postprocedural states; F17.290 Nicotine dependence, other tobacco product, uncomplicated
CPT/HCPCS: 96372; 99282; J1100; J1885

== ENCOUNTER 2021-11-04 13:36 | Emergency (ER) | payer SELFPAY ==
--- NOTE | 2021-11-04 22:18 | Emergency Department Report ---
ED Neck Pain/Injury HPI - General Chief Complaint: Extremity Problem,Nontraumatic Stated Complaint: RT NECK AND SHOULDER PAIN Time Seen by Provider: 11/04/21 21:39 Mode of arrival: Ambulatory Limitations: No Limitations - History of Present Illness MD Complaint: neck pain, neck injury -: Gradual Place: home Severity: mild, moderate Quality: dull, aching Consistency: constant Improves With: none Worsens With: none Associated Symptoms: none Treatments Prior to Arrival: none - Related Data Previous Rx's Medication Instructions Recorded Last Taken Type Albuterol Mdi (or & Nicu Only) 2 puff IH Q6H PRN #1 inhalation 07/06/19 Unknown Rx [ProAir HFA Inhaler] Naproxen 500 mg PO BID PRN #60 05/09/21 Unknown Rx Naproxen [Naprosyn TAB] 500 mg PO BID PRN #20 tablet 05/09/21 Unknown Rx Acetaminophen/Codeine [Tylenol 1 tab PO Q6H PRN #12 tab 06/04/21 Unknown Rx /Codeine # 3 tab] Colchicine 0.6 mg PO Q2HR #20 06/04/21 Unknown Rx Indomethacin 50 mg PO Q8H #30 cap 09/24/21 Unknown Rx predniSONE [Deltasone] 40 mg PO QDAY 5 Days #10 tab 09/24/21 Unknown Rx Colchicine 0.6 mg PO DAILY #3 tab 10/06/21 Unknown Rx Naproxen [Naprosyn] 500 mg PO BID 15 Days #30 tablet 10/27/21 Unknown Rx predniSONE [Deltasone] 50 mg PO QDAY 5 Days #5 tab 10/27/21 Unknown Rx Ketorolac [Toradol] 10 mg PO Q6H PRN #15 tablet 11/04/21 Unknown Rx methOCARBAMOL [Robaxin TAB] 750 mg PO Q8H PRN #14 tablet 11/04/21 Unknown Rx Allergies Allergy/AdvReac Type Severity Reaction Status Date / Time No Known Allergies Allergy Verified 10/27/21 13:13 ED Review of Systems ROS: Stated complaint: RT NECK AND SHOULDER PAIN Other details as noted in HPI Comment: All other systems reviewed and negative ED Past Medical Hx - Past Medical History Hx Arthritis: Yes (gout) Additional medical history: Gout - Surgical History Additional Surgical History: Left elbow surgery at [facility]. SKIN GRAFTS RIGHT ARM - Social History Smoking Status: Current Every Day Smoker - Medications Home Medications: Home Medications Medication Instructions Recorded Confirmed Last Taken Type Albuterol Mdi (or & Nicu Only) 2 puff IH Q6H PRN #1 inhalation 07/06/19 Unknown Rx [ProAir HFA Inhaler] Naproxen 500 mg PO BID PRN #60 05/09/21 Unknown Rx Naproxen [Naprosyn TAB] 500 mg PO BID PRN #20 tablet 05/09/21 Unknown Rx Acetaminophen/Codeine [Tylenol 1 tab PO Q6H PRN #12 tab 06/04/21 Unknown Rx /Codeine # 3 tab] Colchicine 0.6 mg PO Q2HR #20 06/04/21 Unknown Rx Indomethacin 50 mg PO Q8H #30 cap 09/24/21 Unknown Rx predniSONE [Deltasone] 40 mg PO QDAY 5 Days #10 tab 09/24/21 Unknown Rx Colchicine 0.6 mg PO DAILY #3 tab 10/06/21 Unknown Rx Naproxen [Naprosyn] 500 mg PO BID 15 Days #30 tablet 10/27/21 Unknown Rx predniSONE [Deltasone] 50 mg PO QDAY 5 Days #5 tab 10/27/21 Unknown Rx Ketorolac [Toradol] 10 mg PO Q6H PRN #15 tablet 11/04/21 Unknown Rx methOCARBAMOL [Robaxin TAB] 750 mg PO Q8H PRN #14 tablet 11/04/21 Unknown Rx ED Physical Exam - General Limitations: No Limitations General appearance: alert, in no apparent distress - Head Head exam: Present: atraumatic, normocephalic - Eye Eye exam: Present: normal appearance - ENT ENT exam: Present: mucous membranes moist - Neck Neck exam: Present: normal inspection, tenderness (Trapezius region with palpation spasms noted. Spurling's test is negative there is pain with range of motion. No midline tenderness is noted.), full ROM - Respiratory Respiratory exam: Present: normal lung sounds bilaterally. Absent: respiratory distress, wheezes, rales, rhonchi, chest wall tenderness, accessory muscle use - Cardiovascular Cardiovascular Exam: Present: regular rate, normal rhythm, normal heart sounds. Absent: bradycardia, systolic murmur, diastolic murmur, rubs, gallop - GI/Abdominal GI/Abdominal exam: Present: soft, normal bowel sounds - Rectal Rectal exam: Present: deferred - Extremities Exam Extremities exam: Present: normal inspection - Back Exam Back exam: Present: normal inspection - Neurological Exam Neurological exam: Present: alert, oriented X3 - Psychiatric Psychiatric exam: Present: normal affect, normal mood - Skin Skin exam: Present: warm, dry, intact, normal color. Absent: rash ED Course Vital Signs 11/04/21 15:11 Temperature 98.3 F Pulse Rate 72 Respiratory 14 Rate Blood Pressure 134/94 [Right] O2 Sat by Pulse 97 Oximetry Critical care attestation.: If time is entered above; I have spent that time in minutes in the direct care of this critically ill patient, excluding procedure time. ED Disposition Clinical Impression: Trapezius muscle spasm Disposition: HOME / SELF CARE / HOMELESS Is pt being admited?: No Does the pt Need Aspirin: No Condition: Stable Instructions: Muscle Cramps and Spasms, [id number], Neck Exercises, Radicular Pain Prescriptions: methOCARBAMOL [Robaxin TAB] 750 mg PO Q8H PRN #14 tablet PRN Reason: Pain, Moderate (4-6) Ketorolac [Toradol] 10 mg PO Q6H PRN #15 tablet PRN Reason: Pain Referrals: NGUYEN HERNANDEZ MD [Primary Care Provider] - 3-5 Days
[2021-11-04 22:57] VITALS: BP 139/81
== END 2021-11-04 22:57 | disposition home or self-care (01) ==
LOC: ED 13:36
DX: M62.838 Other muscle spasm (principal); M10.9 Gout, unspecified; Z98.890 Other specified postprocedural states; F17.290 Nicotine dependence, other tobacco product, uncomplicated
CPT/HCPCS: 99282

== ENCOUNTER 2021-11-15 09:03 | Emergency (ER) | payer SELFPAY ==
[2021-11-15] MEDS ORDERED: ONDANSETRON 4 MG/2 ML INJ IV ONE (09:17)
[2021-11-15] MEDS ORDERED: SODIUM CHLORIDE 0.9% 1000 ML 1,000 ML IV ONE ×2 (09:17→10:34)
[2021-11-15] MEDS ORDERED: HYDROmorphone 1 MG/1 ML INJ IV ONE (09:17)
--- NOTE | 2021-11-15 09:26 | Emergency Department Report ---
ED Abdominal Pain HPI - General Chief Complaint: Abdominal Pain Stated Complaint: PAIN IN PUBIC AREA Time Seen by Provider: 11/15/21 09:16 Source: patient, EMS Mode of arrival: Ambulatory Limitations: No Limitations - History of Present Illness Initial Comments: 61-year-old male who presents with right lower abdominal pain that started shortly after having a normal bowel movement this morning. Patient rated the pain as 10/10 in severity. Nothing could make this patient comfortable. No fever or chills reported. All was well before the symptoms started. Patient also reported nausea without emesis. No diarrhea reported. No trauma or fall reported. Patient also denies any urinary symptoms. No previous abdominal surgery reported. No other modifying or associated factors reported. Severity scale (0 -10): 10 - Related Data Previous Rx's Medication Instructions Recorded Last Taken Type Albuterol Mdi (or & Nicu Only) 2 puff IH Q6H PRN #1 inhalation 07/06/19 Unknown Rx [ProAir HFA Inhaler] Naproxen 500 mg PO BID PRN #60 05/09/21 Unknown Rx Naproxen [Naprosyn TAB] 500 mg PO BID PRN #20 tablet 05/09/21 Unknown Rx Acetaminophen/Codeine [Tylenol 1 tab PO Q6H PRN #12 tab 06/04/21 Unknown Rx /Codeine # 3 tab] Colchicine 0.6 mg PO Q2HR #20 06/04/21 Unknown Rx Indomethacin 50 mg PO Q8H #30 cap 09/24/21 Unknown Rx predniSONE [Deltasone] 40 mg PO QDAY 5 Days #10 tab 09/24/21 Unknown Rx Colchicine 0.6 mg PO DAILY #3 tab 10/06/21 Unknown Rx Naproxen [Naprosyn] 500 mg PO BID 15 Days #30 tablet 10/27/21 Unknown Rx predniSONE [Deltasone] 50 mg PO QDAY 5 Days #5 tab 10/27/21 Unknown Rx Ketorolac [Toradol] 10 mg PO Q6H PRN #15 tablet 11/04/21 Unknown Rx methOCARBAMOL [Robaxin TAB] 750 mg PO Q8H PRN #14 tablet 11/04/21 Unknown Rx Ketorolac [Toradol] 10 mg PO Q6H PRN 5 Days #20 tab NS 11/15/21 Unknown Rx Ondansetron (Nf) [Zofran TAB] 8 mg PO Q8HR PRN 4 Days #12 tablet 11/15/21 Unknown Rx NS Allergies Allergy/AdvReac Type Severity Reaction Status Date / Time No Known Allergies Allergy Verified 10/27/21 13:13 ED Review of Systems ROS: Stated complaint: PAIN IN PUBIC AREA Other details as noted in HPI Comment: All other systems reviewed and negative Gastrointestinal: abdominal pain (right lower quadrant ), nausea. denies: vomiting ED Past Medical Hx - Past Medical History Hx Arthritis: Yes (gout) Additional medical history: Gout - Surgical History Additional Surgical History: Left elbow surgery at [facility]. SKIN GRAFTS RIGHT ARM - Social History Smoking Status: Current Every Day Smoker - Medications Home Medications: Home Medications Medication Instructions Recorded Confirmed Last Taken Type Albuterol Mdi (or & Nicu Only) 2 puff IH Q6H PRN #1 inhalation 07/06/19 Unknown Rx [ProAir HFA Inhaler] Naproxen 500 mg PO BID PRN #60 05/09/21 Unknown Rx Naproxen [Naprosyn TAB] 500 mg PO BID PRN #20 tablet 05/09/21 Unknown Rx Acetaminophen/Codeine [Tylenol 1 tab PO Q6H PRN #12 tab 06/04/21 Unknown Rx /Codeine # 3 tab] Colchicine 0.6 mg PO Q2HR #20 06/04/21 Unknown Rx Indomethacin 50 mg PO Q8H #30 cap 09/24/21 Unknown Rx predniSONE [Deltasone] 40 mg PO QDAY 5 Days #10 tab 09/24/21 Unknown Rx Colchicine 0.6 mg PO DAILY #3 tab 10/06/21 Unknown Rx Naproxen [Naprosyn] 500 mg PO BID 15 Days #30 tablet 10/27/21 Unknown Rx predniSONE [Deltasone] 50 mg PO QDAY 5 Days #5 tab 10/27/21 Unknown Rx Ketorolac [Toradol] 10 mg PO Q6H PRN #15 tablet 11/04/21 Unknown Rx methOCARBAMOL [Robaxin TAB] 750 mg PO Q8H PRN #14 tablet 11/04/21 Unknown Rx Ketorolac [Toradol] 10 mg PO Q6H PRN 5 Days #20 tab NS 11/15/21 Unknown Rx Ondansetron (Nf) [Zofran TAB] 8 mg PO Q8HR PRN 4 Days #12 tablet 11/15/21 Unknown Rx NS ED Physical Exam - General Limitations: No Limitations General appearance: alert, in distress (due to abdominal pain ) - Head Head exam: Present: normal inspection - Eye Eye exam: Present: normal appearance Pupils: Present: normal accommodation - ENT ENT exam: Present: normal exam, normal orophraynx, mucous membranes dry - Neck Neck exam: Present: normal inspection, full ROM. Absent: tenderness - Respiratory Respiratory exam: Present: normal lung sounds bilaterally. Absent: respiratory distress, chest wall tenderness, accessory muscle use - Cardiovascular Cardiovascular Exam: Present: regular rate, normal rhythm, normal heart sounds - GI/Abdominal GI/Abdominal exam: Present: soft, tenderness (RLQ to pain with budging mass noted in the right inguinal area), guarding, normal bowel sounds, hernia (RLQ to pain with budging mass noted in the right inguinal area). Absent: distended, rebound - Extremities Exam Extremities exam: Present: normal inspection, normal capillary refill. Absent: pedal edema - Back Exam Back exam: Present: normal inspection. Absent: tenderness, CVA tenderness (R), CVA tenderness (L) ED Course Vital Signs 11/15/21 11/15/21 11/15/21 09:03 09:19 09:29 Temperature 98.2 F 97.6 F 97.6 F Pulse Rate 70 76 77 Respiratory 16 19 Rate Blood Pressure 135/82 Blood Pressure 140/100 140/80 [Left] O2 Sat by Pulse 99 100 Oximetry 11/15/21 11/15/21 10:20 11:28 Temperature Pulse Rate 82 81 Respiratory 15 14 Rate Blood Pressure Blood Pressure 124/74 122/62 [Left] O2 Sat by Pulse 98 98 Oximetry ED Medical Decision Making - Lab Data Result diagrams: 11/15/21 10:09 11/15/21 10:09 - Medical Decision Making Here with abdominal pain in the right lower abdomen with noted budging mass in the inguinal area which makes this likely right inguinal hernia but differential could be but not limited to appendicitis, diverticulitis, cholecystitis, cholelithiasis, nephrolithiasis, farfetched gastritis, pancreatitis, duodenitis, colitis, or irritable bowel syndrome, cystitis, so in order to rule this out we will go ahead and order routine acute abdomen that include CBC, CMP, urinalysis, and CT imaging of the abdomen/pelvic. In the meantime will start ivf ns 1L bolus x1, Dilaudid 1 mg IV x 1 and zofran 4 mg IV x 1 for symptomatic pain relief while waiting for the above and trying to reduce the hernia-- I attempted to reduce the hernia after given the dilaudid above but patient reports excruciating pain so it was discontinued and until given additional pain medication Morphine 4 mg and Ativan 1 mg IV x 1-- I was able to reduce the right inguinal hernia after adding morphine and ativan -- CT abd/pel --noted with small fat containing on the right inguinal hernial -- Critical care attestation.: If time is entered above; I have spent that time in minutes in the direct care of this critically ill patient, excluding procedure time. ED Disposition Clinical Impression: Right inguinal hernia, Abdominal pain, right lower quadrant Disposition: 01 HOME / SELF CARE / HOMELESS Is pt being admited?: No Does the pt Need Aspirin: No Condition: Stable Instructions: Inguinal Hernia, Adult, [id number] Additional Instructions: Take your pain medication as prescribed to continue to help your symptoms Please call Dr. Silver's office your general surgeon at [phone] for further evaluation and treatment Avoid anything that would strain your abdomen at this could lead to repeat of your symptoms Call or return to ED if your symptoms worsen Prescriptions: Ketorolac [Toradol] 10 mg PO Q6H PRN 5 Days #20 tab NS PRN Reason: Pain Ondansetron (Nf) [Zofran TAB] 8 mg PO Q8HR PRN 4 Days #12 tablet NS PRN Reason: Pain , Severe (7-10) Referrals: NGUYEN HERNANDEZ MD [Primary Care Provider] - 3-5 Days
[2021-11-15] MEDS ORDERED: MORPHINE 4 MG/1 ML INJ IV ONE (10:34)
[2021-11-15] MEDS ORDERED: LORazepam 2 MG/ML VIAL IV ONE (10:34)
[2021-11-15 10:57] LABS: Basophils % (Auto) 0.6 % (0.0-1.8); Eosinophils # (Auto) 0.1 K/mm3 (0.0-0.4); Hematocrit 46.1 % (35.5-45.6); Hemoglobin 15.6 gm/dl (11.8-15.2); Lymphocytes # (Auto) 1.2 K/mm3 (1.2-5.4); Lymphocytes % (Auto) 15.5 % (13.4-35.0); Mean Corpuscular HGB Conc 34 % (32-34); Mean Corpuscular Volume 92 fl (84-94); Monocytes # (Auto) 0.7 K/mm3 (0.0-0.8); Monocytes % (Auto) 9.6 % (0.0-7.3); Platelet Count 283 K/mm3 (140-440); Red Cell Distribution Width 14.9 % (13.2-15.2)
[2021-11-15 11:15] LABS: INR 0.88 (0.87-1.13)
[2021-11-15 11:17] LABS: Alanine Aminotransferase 8 units/L (7-56); Albumin 3.4 g/dL (3.9-5); BUN/Creatinine Ratio 10; Blood Urea Nitrogen 10 mg/dL (9-20); Calcium 8.4 mg/dL (8.4-10.2); Hemolysis Index 2
[2021-11-15 11:26] LABS: Bilirubin,Direct < 0.2 mg/dL (0-0.2)
[2021-11-15 11:30] VITALS: BP 122/62
--- NOTE | 2021-11-15 12:01 | Cat Scan Report ---
CT ABDOMEN AND PELVIS WITH CONTRAST HISTORY: Abdominal Pain. COMPARISON: None. TECHNIQUE: CT images of the abdomen and pelvis were obtained following administration of intravenous contrast. All CT scans at this location are performed using CT dose reduction for ALARA by means of automated exposure control. CONTRAST: 100 ml of intravenous contrast administered. FINDINGS: Lungs/bones: COPD changes with mild bibasilar atelectasis. No pleural effusion. There are degenerati ve changes in the spine and pelvis with no acute osseous abnormality identified. Abdomen/pelvis: The liver, gallbladder, spleen, pancreas, adrenals, right kidney, and proximal GI tr act appear unremarkable. Simple cyst in the lower pole the left kidney. There are Shoddy peritoneal a nd retroperitoneal lymph nodes but no pathologic adenopathy. The prostate is enlarged and indents the bladder base. Bladder is unremarkable. There is a small fat- containing right inguinal hernia. No pelvic free fluid. There is colonic diverticulosis with no acute inflammatory change identified. The appendix is retrocecal and appears normal. IMPRESSION: 1. No acute abnormality identified. 2. Incidental findings as above. Signer Name: Flaco Duong MD Signed: 11/15/2021 11:56 AM Workstation Name: [id number]
== END 2021-11-15 14:25 | disposition home or self-care (01) ==
LOC: ED 09:03
DX: K40.90 Unilateral inguinal hernia, without obstruction or gangrene, not specified as recurrent (principal); R10.31 Right lower quadrant pain; M19.90 Unspecified osteoarthritis, unspecified site; F17.200 Nicotine dependence, unspecified, uncomplicated
CPT/HCPCS: 36415; 74177; 80048; 80076; 83690; 85025; 85610; 96361; 96374; 96375; 99284; J1170; J2060; J2270; J2405; J7030; Q9967

== ENCOUNTER 2021-11-20 16:36 | Emergency (ER) | payer SELFPAY ==
[2021-11-20 16:47] VITALS: BP 122/71
[2021-11-20] MEDS ORDERED: methylPREDNISolone Sod Succinate 125 MG/2 ML INJ IM STA (17:37)
--- NOTE | 2021-11-20 19:14 | Emergency Department Report ---
ED General Adult HPI - General Chief complaint: Extremity Problem,Nontraumatic Stated complaint: GOUT IN R WRIST AND ARM Time Seen by Provider: 11/20/21 17:34 Source: patient Mode of arrival: Ambulatory Limitations: No Limitations - History of Present Illness Initial comments: 61-year-old male was admitted from complaining of a gout flareup of his wrist and normal rest which is a usual flareup requesting the medications to mitigate his symptoms he is unsure of the cause of this flareup. Ports no fever, chills, sweats. No chest pain palpitation no nausea vomiting, no hemoptysis symptoms hematochezia, no traumatic events. -: Gradual Radiation: non-radiation Quality: aching, dull Consistency: constant Improves with: none Worsens with: none Associated Symptoms: denies other symptoms. denies: chest pain, diaphoresis, loss of appetite, nausea/vomiting, shortness of breath, syncope - Related Data Previous Rx's Medication Instructions Recorded Last Taken Type Albuterol Mdi (or & Nicu Only) 2 puff IH Q6H PRN #1 inhalation 07/06/19 Unknown Rx [ProAir HFA Inhaler] Naproxen 500 mg PO BID PRN #60 05/09/21 Unknown Rx Naproxen [Naprosyn TAB] 500 mg PO BID PRN #20 tablet 05/09/21 Unknown Rx predniSONE [Deltasone] 40 mg PO QDAY 5 Days #10 tab 09/24/21 Unknown Rx Colchicine 0.6 mg PO DAILY #3 tab 10/06/21 Unknown Rx Naproxen [Naprosyn] 500 mg PO BID 15 Days #30 tablet 10/27/21 Unknown Rx predniSONE [Deltasone] 50 mg PO QDAY 5 Days #5 tab 10/27/21 Unknown Rx Ketorolac [Toradol] 10 mg PO Q6H PRN #15 tablet 11/04/21 Unknown Rx methOCARBAMOL [Robaxin TAB] 750 mg PO Q8H PRN #14 tablet 11/04/21 Unknown Rx Ketorolac [Toradol] 10 mg PO Q6H PRN 5 Days #20 tab NS 11/15/21 Unknown Rx Ondansetron (Nf) [Zofran TAB] 8 mg PO Q8HR PRN 4 Days #12 tablet 11/15/21 Unknown Rx NS Acetaminophen/Codeine [Tylenol 1 tab PO Q6H PRN #12 tab 11/20/21 Unknown Rx /Codeine # 3 tab] Colchicine 0.6 mg PO Q2HR #20 11/20/21 Unknown Rx Indomethacin 50 mg PO Q8H #30 cap 11/20/21 Unknown Rx Allergies Allergy/AdvReac Type Severity Reaction Status Date / Time No Known Allergies Allergy Verified 10/27/21 13:13 ED Review of Systems ROS: Stated complaint: GOUT IN R WRIST AND ARM Other details as noted in HPI Comment: All other systems reviewed and negative ED Past Medical Hx - Past Medical History Hx Arthritis: Yes (gout) Additional medical history: Gout - Surgical History Additional Surgical History: Left elbow surgery at [facility]. SKIN GRAFTS RIGHT ARM - Social History Smoking Status: Current Every Day Smoker - Medications Home Medications: Home Medications Medication Instructions Recorded Confirmed Last Taken Type Albuterol Mdi (or & Nicu Only) 2 puff IH Q6H PRN #1 inhalation 07/06/19 Unknown Rx [ProAir HFA Inhaler] Naproxen 500 mg PO BID PRN #60 05/09/21 Unknown Rx Naproxen [Naprosyn TAB] 500 mg PO BID PRN #20 tablet 05/09/21 Unknown Rx predniSONE [Deltasone] 40 mg PO QDAY 5 Days #10 tab 09/24/21 Unknown Rx Colchicine 0.6 mg PO DAILY #3 tab 10/06/21 Unknown Rx Naproxen [Naprosyn] 500 mg PO BID 15 Days #30 tablet 10/27/21 Unknown Rx predniSONE [Deltasone] 50 mg PO QDAY 5 Days #5 tab 10/27/21 Unknown Rx Ketorolac [Toradol] 10 mg PO Q6H PRN #15 tablet 11/04/21 Unknown Rx methOCARBAMOL [Robaxin TAB] 750 mg PO Q8H PRN #14 tablet 11/04/21 Unknown Rx Ketorolac [Toradol] 10 mg PO Q6H PRN 5 Days #20 tab NS 11/15/21 Unknown Rx Ondansetron (Nf) [Zofran TAB] 8 mg PO Q8HR PRN 4 Days #12 tablet 11/15/21 Unknown Rx NS Acetaminophen/Codeine [Tylenol 1 tab PO Q6H PRN #12 tab 11/20/21 Unknown Rx /Codeine # 3 tab] Colchicine 0.6 mg PO Q2HR #20 11/20/21 Unknown Rx Indomethacin 50 mg PO Q8H #30 cap 11/20/21 Unknown Rx ED Physical Exam - General Limitations: No Limitations General appearance: alert, in no apparent distress - Head Head exam: Present: atraumatic, normocephalic - Eye Eye exam: Present: normal appearance - ENT ENT exam: Present: mucous membranes moist - Neck Neck exam: Present: normal inspection - Respiratory Respiratory exam: Present: normal lung sounds bilaterally. Absent: respiratory distress - Cardiovascular Cardiovascular Exam: Present: regular rate, normal rhythm. Absent: systolic murmur, diastolic murmur, rubs, gallop - GI/Abdominal GI/Abdominal exam: Present: soft, normal bowel sounds - Rectal Rectal exam: Present: deferred - Extremities Exam Extremities exam: Present: normal inspection, tenderness (Tenderness to the right wrist with palpation some swelling noted some tenderness to the elbow with tenderness with swelling mild warmth is present. No lymphangitis is present no lymphadenopathy. The vocal artist strength is 4 5.) - Back Exam Back exam: Present: normal inspection. Absent: CVA tenderness (R), CVA tenderness (L) - Neurological Exam Neurological exam: Present: alert, oriented X3 - Psychiatric Psychiatric exam: Present: normal affect, normal mood - Skin Skin exam: Present: warm, dry, intact, normal color. Absent: rash ED Course Vital Signs 11/20/21 16:43 Pulse Rate 87 Blood Pressure 122/71 [Left] O2 Sat by Pulse 95 Oximetry Critical care attestation.: If time is entered above; I have spent that time in minutes in the direct care of this critically ill patient, excluding procedure time. ED Disposition Clinical Impression: Gouty arthritis Disposition: 01 HOME / SELF CARE / HOMELESS Is pt being admited?: No Does the pt Need Aspirin: No Condition: Stable Instructions: Low-Purine Eating Plan Prescriptions: Colchicine 0.6 mg PO Q2HR #20 Indomethacin 50 mg PO Q8H #30 cap Acetaminophen/Codeine [Tylenol /Codeine # 3 tab] 1 tab PO Q6H PRN #12 tab PRN Reason: Pain , Severe (7-10) Referrals: [facility] [Provider Group] - 3-5 Days
== END 2021-11-20 19:33 | disposition home or self-care (01) ==
LOC: ED 16:36
DX: M10.9 Gout, unspecified (principal); F17.200 Nicotine dependence, unspecified, uncomplicated; Z79.899 Other long term (current) drug therapy
CPT/HCPCS: 96372; 99282; J2930